=== PATIENT | female | born 1945 | race Caucasian/White ===

== ENCOUNTER 2017-03-23 06:19 | Inpatient (IN) | payer MEDICARE, OTHER ==
[~2017-03-23] VITALS: Ht 152.4 cm; Wt 44.0 kg
[~2017-03-23 06:19] MED LIST: ALBU8HFA PO; AMLO5TAB PO; BENA40TA2 PO; BENA40TA8 PO; FLUT1DIS7 INH; IPRA3AMP IH; MESA500C PO; NOR5T PO
[2017-03-23] MEDS ORDERED: normal saline 1000ml 1,000 ML IV ONE (06:45)
[2017-03-23 07:52] LABS: BASOPHILS % (AUTO) 0 % (0-1); EOSINOPHILS % (AUTO) 0 % (0-6); HEMATOCRIT 35.5 % (35.0-45.0); HEMOGLOBIN 12.3 g/dl (12.0-16.0); LYMPHOCYTES # (AUTO) 0.8 X10'3 (1.1-4.8); LYMPHOCYTES % (AUTO) 6.1 % (21-51); MEAN CORPUSCULAR HEMOGLOBIN 30.1 PG (27.0-31.0); MEAN CORPUSCULAR HGB CONC 34.5 % (33.0-36.5); MEAN CORPUSCULAR VOLUME 87.2 FL (78-98); MEAN PLATELET VOLUME 9.4 FL (7.4-10.4); MONOCYTES # (AUTO) 0.4 X10'3 (0-0.9); MONOCYTES % (AUTO) 3.6 % (2-12); NEUTROPHILS # (AUTO) 11.4 X10'3 (1.8-7.7); NEUTROPHILS % (AUTO) 90.3 % (42-75); PLATELET COUNT 213 X10'3 (140-440); RED BLOOD COUNT 4.08 X10'6 (4.20-5.60); RED CELL DISTRIBUTION WIDTH 13.9 % (11.5-14.5); WHITE BLOOD COUNT 12.6 X10'3 (4.5-11.0)
[2017-03-23 08:04] LABS: INR 1.1 INR; PARTIAL THROMBOPLASTIN TIME 29 SECONDS (22-32); PROTHROMBIN TIME 11.1 SECONDS (9.0-12.0)
[2017-03-23] MEDS ORDERED: Budesonide PO (08:04)
[2017-03-23] MEDS ORDERED: SULF500T9 PO (08:04)
[2017-03-23 08:09] LABS: ALANINE AMINOTRANSFERASE 27 U/L (12-78); ALBUMIN 2.4 G/DL (3.4-5.0); ALBUMIN/GLOBULIN RATIO 0.6 (1.1-1.5); ALKALINE PHOSPHATASE 62 IU/L (46-116); ANION GAP 10 (8-16); ASPARTATE AMINO TRANSFERASE 36 U/L (10-37); BILIRUBIN,TOTAL 0.6 MG/DL (0.1-1.0); BLOOD UREA NITROGEN 11 MG/DL (7-18); BUN/CREATININE RATIO 18.3 (6.6-38.0); CALCIUM 8.4 MG/DL (8.5-10.1); CHLORIDE 97 MMOL/L (99-107); GLUCOSE 109 MG/DL (70-104); LIPASE 62 U/L (73-393); MAGNESIUM 1.9 MG/DL (1.5-2.4); SODIUM 133 MMOL/L (135-145); TOTAL CARBON DIOXIDE 26.4 MMOL/L (24-32); TOTAL PROTEIN 6.7 G/DL (6.4-8.2); eGFR > 90 ML/MIN
[2017-03-23 08:11] LABS: POTASSIUM 3.5 MMOL/L (3.5-5.1)
[2017-03-23] MEDS ORDERED: levoFLOXACIN-Levaquin 500mg/D5 100 ML IV ONE (08:15)
[2017-03-23] MEDS ORDERED: metroNIDAZOLE-Flagyl 500mg/NS 100 ML IV ONE (08:15)
[2017-03-23 09:37] LABS: TOTAL CELLS COUNTED 100
[2017-03-23 09:38] LABS: PLATELET ESTIMATE NORMAL; TOXIC VACUOLATION FEW
[2017-03-23 09:40] LABS: OCCULT BLOOD STOOL POSITIVE (Neg)
[2017-03-23] MEDS ORDERED: acetaminophen 325mg tablet PO PRN (09:40)
[2017-03-23] MEDS ORDERED: mag hydrox/Alum hydrox/simeth 30ml oral suspension PO PRN (09:40)
[2017-03-23] MEDS ORDERED: morphine 2 MG/ML inj. syringe IV PRN ×2 (09:40)
[2017-03-23] MEDS ORDERED: MESSAGE TO PHARMACY PO ONE (09:40)
[2017-03-23] MEDS ORDERED: insulin Lispro (HumaLOG) vial - multi-dose SQ SCH (09:40)
[2017-03-23] MEDS ORDERED: dextrose 50%-water 50ml dispensing syringe IV PRN ×2 (09:40)
[2017-03-23] MEDS ORDERED: magnesium hydroxide 30ml (MOM) UD suspension PO PRN (09:40)
[2017-03-23] MEDS ORDERED: ondansetron/PF 4mg/2ml inj IV PRN (09:40)
[2017-03-23] MEDS ORDERED: HYDROcodone/acetaminophen 5mg/325mg tablet PO PRN (09:40)
[2017-03-23] MEDS ORDERED: dextrose ORAL solution 15 GM/59 ML bottle PO PRN ×2 (09:40)
[2017-03-23] MEDS ORDERED: HYDROcodone/acetaminophen 10/325mg tab PO PRN (09:40)
[2017-03-23] MEDS ORDERED: glucagon, human recombinant 1mg kit SUBCUT PRN (09:40)
[2017-03-23] MEDS: amLODIPine 5mg tablet PO SCH (10:00)
[2017-03-23] MEDS: lisinopril 20mg tablet PO SCH (10:22)
[2017-03-23] MEDS: normal saline 1000ml 1,000 ML IV SCH ×2 (10:23→12:13)
[2017-03-23 10:52] LABS: HEMOGLOBIN A1C 5.7 % (4.5-6.2)
[2017-03-23 11:51] VITALS: BP 94/64
[2017-03-23] MEDS ORDERED: ipratropium/albuterol 3ml nebule IH SCH (13:00)
[2017-03-23] MEDS: sulfaSALAZINE 500 MG tablet PO SCH ×2 (13:13→21:52)
[2017-03-23] MEDS: fluticasone/vilanterol 200mcg/25mcg inhaler IH SCH (13:31)
[2017-03-23] MEDS: ipratropium/albuterol 3ml nebule IH SCH (16:00)
[2017-03-23] MEDS: methylPREDNISolone sod succ 125mg/2ml vial IV SCH (16:14)
[2017-03-23] MEDS: metroNIDAZOLE-Flagyl 500mg/NS 100 ML IV SCH (16:15)
[2017-03-23] MEDS: dextrose 5%-normal saline 1,000 ML IV SCH (17:43)
[2017-03-23 19:30] VITALS: BP 115/60
[2017-03-23] MEDS: insulin glargine (Lantus) pen - multi-dose SQ SCH (22:00)
[2017-03-23 23:30] VITALS: BP 103/65
[2017-03-24] MEDS: ipratropium/albuterol 3ml nebule IH SCH ×5 (00:03→19:21)
[2017-03-24] MEDS: methylPREDNISolone sod succ 125mg/2ml vial IV SCH ×4 (00:36→23:58)
[2017-03-24] MEDS: metroNIDAZOLE-Flagyl 500mg/NS 100 ML IV SCH ×4 (00:36→23:58)
[2017-03-24] MEDS: dextrose 5%-normal saline 1,000 ML IV SCH ×2 (03:51→13:30)
[2017-03-24 05:07] LABS: BASOPHILS % (AUTO) 0 % (0-1); EOSINOPHILS # (AUTO) 0.1 X10'3 (0-0.9); EOSINOPHILS % (AUTO) 1.5 % (0-6); HEMATOCRIT 28.8 % (35.0-45.0); HEMOGLOBIN 9.9 g/dl (12.0-16.0); LYMPHOCYTES # (AUTO) 0.6 X10'3 (1.1-4.8); LYMPHOCYTES % (AUTO) 6.8 % (21-51); MEAN CORPUSCULAR HEMOGLOBIN 29.8 PG (27.0-31.0); MEAN CORPUSCULAR HGB CONC 34.2 % (33.0-36.5); MEAN CORPUSCULAR VOLUME 87.3 FL (78-98); MEAN PLATELET VOLUME 9.2 FL (7.4-10.4); MONOCYTES # (AUTO) 0.1 X10'3 (0-0.9); MONOCYTES % (AUTO) 1.4 % (2-12); NEUTROPHILS # (AUTO) 8.1 X10'3 (1.8-7.7); NEUTROPHILS % (AUTO) 90.3 % (42-75); PLATELET COUNT 170 X10'3 (140-440); RED CELL DISTRIBUTION WIDTH 14.1 % (11.5-14.5); WHITE BLOOD COUNT 8.9 X10'3 (4.5-11.0)
[2017-03-24 05:31] LABS: ANION GAP 8 (8-16); BLOOD UREA NITROGEN 11 MG/DL (7-18); BUN/CREATININE RATIO 27.5 (6.6-38.0); CALCIUM 8.1 MG/DL (8.5-10.1); CHLORIDE 105 MMOL/L (99-107); GLUCOSE 257 MG/DL (70-104); SODIUM 137 MMOL/L (135-145); TOTAL CARBON DIOXIDE 24.4 MMOL/L (24-32); eGFR > 90 ML/MIN
[2017-03-24 05:32] LABS: ALANINE AMINOTRANSFERASE 23 U/L (12-78); ALBUMIN 1.9 G/DL (3.4-5.0); ALBUMIN/GLOBULIN RATIO 0.5 (1.1-1.5); ALKALINE PHOSPHATASE 51 IU/L (46-116); ASPARTATE AMINO TRANSFERASE 34 U/L (10-37); BILIRUBIN,TOTAL 0.3 MG/DL (0.1-1.0); MAGNESIUM 1.7 MG/DL (1.5-2.4); TOTAL PROTEIN 5.5 G/DL (6.4-8.2)
[2017-03-24 05:37] LABS: POTASSIUM 3.1 MMOL/L (3.5-5.1)
[2017-03-24] MEDS: normal saline 1000ml 1,000 ML IV SCH ×2 (05:37→16:35)
[2017-03-24] MEDS: lisinopril 20mg tablet PO SCH (07:35)
[2017-03-24] MEDS: amLODIPine 5mg tablet PO SCH (07:35)
[2017-03-24] MEDS: sulfaSALAZINE 500 MG tablet PO SCH ×3 (07:41→21:01)
[2017-03-24 07:51] VITALS: BP 97/56
[2017-03-24] MEDS ORDERED: fluticasone/vilanterol 200mcg/25mcg inhaler IH SCH (08:00)
[2017-03-24] MEDS: fluticasone/vilanterol 200mcg/25mcg inhaler IH SCH (08:28)
[2017-03-24] MEDS: levoFLOXACIN-Levaquin 500mg/D5 100 ML IV SCH (09:23)
[2017-03-24 11:12] VITALS: BP 96/63
[2017-03-24] MEDS ORDERED: magnesium Cl slow-release 64mg tablet PO PRN (14:40)
[2017-03-24] MEDS ORDERED: magnesium 2GM in 50ml NS 50 ML IV PRN (14:40)
[2017-03-24] MEDS ORDERED: potassium Cl 40MEQ/NS 500ml 500 ML IV PRN ×2 (14:40)
[2017-03-24] MEDS ORDERED: potassium Cl 20 mEq SR tablet PO PRN (14:40)
[2017-03-24] MEDS: potassium Cl 20 mEq SR tablet PO PRN ×2 (14:40→21:11)
[2017-03-24] MEDS ORDERED: magnesium 4gm in 100ml NS 100 ML IV PRN (14:40)
[2017-03-24] MEDS: lactobacillus rhamnosus 10,000 MMU CELLS/CAPSULE PO SCH (17:30)
[2017-03-24 20:00] VITALS: BP 114/60
[2017-03-24] MEDS: insulin glargine (Lantus) pen - multi-dose SQ SCH (21:00)
[2017-03-25] VITALS: BP 143/71
[2017-03-25] MEDS: potassium Cl 20 mEq SR tablet PO PRN (01:15)
[2017-03-25] MEDS: normal saline 1000ml 1,000 ML IV SCH ×3 (01:45→22:32)
[2017-03-25 05:53] LABS: BASOPHILS % (AUTO) 0 % (0-1); EOSINOPHILS # (AUTO) 0.2 X10'3 (0-0.9); EOSINOPHILS % (AUTO) 1.6 % (0-6); HEMATOCRIT 28.8 % (35.0-45.0); HEMOGLOBIN 9.9 g/dl (12.0-16.0); LYMPHOCYTES # (AUTO) 0.8 X10'3 (1.1-4.8); LYMPHOCYTES % (AUTO) 5.3 % (21-51); MEAN CORPUSCULAR HEMOGLOBIN 29.9 PG (27.0-31.0); MEAN CORPUSCULAR HGB CONC 34.4 % (33.0-36.5); MEAN CORPUSCULAR VOLUME 86.8 FL (78-98); MEAN PLATELET VOLUME 9.5 FL (7.4-10.4); MONOCYTES # (AUTO) 0.3 X10'3 (0-0.9); MONOCYTES % (AUTO) 2.2 % (2-12); NEUTROPHILS # (AUTO) 13.9 X10'3 (1.8-7.7); NEUTROPHILS % (AUTO) 90.9 % (42-75); PLATELET COUNT 182 X10'3 (140-440); RED BLOOD COUNT 3.32 X10'6 (4.20-5.60); RED CELL DISTRIBUTION WIDTH 13.9 % (11.5-14.5); WHITE BLOOD COUNT 15.3 X10'3 (4.5-11.0)
[2017-03-25 06:36] LABS: ALANINE AMINOTRANSFERASE 23 U/L (12-78); ALBUMIN/GLOBULIN RATIO 0.6 (1.1-1.5); ALKALINE PHOSPHATASE 68 IU/L (46-116); ANION GAP 7 (8-16); ASPARTATE AMINO TRANSFERASE 18 U/L (10-37); BILIRUBIN,TOTAL 0.3 MG/DL (0.1-1.0); BLOOD UREA NITROGEN 11 MG/DL (7-18); CALCIUM 8.6 MG/DL (8.5-10.1); CHLORIDE 106 MMOL/L (99-107); GLUCOSE 152 MG/DL (70-104); MAGNESIUM 1.7 MG/DL (1.5-2.4); PHOSPHORUS 1.7 MG/DL (2.3-4.5); SODIUM 137 MMOL/L (135-145); TOTAL CARBON DIOXIDE 23.7 MMOL/L (24-32); TOTAL PROTEIN 5.5 G/DL (6.4-8.2); eGFR > 90 ML/MIN
[2017-03-25 06:37] LABS: POTASSIUM 3.6 MMOL/L (3.5-5.1)
[2017-03-25] MEDS: ipratropium/albuterol 3ml nebule IH SCH ×4 (07:10→19:08)
[2017-03-25] MEDS: fluticasone/vilanterol 200mcg/25mcg inhaler IH SCH (07:10)
[2017-03-25] MEDS: amLODIPine 5mg tablet PO SCH (07:48)
[2017-03-25] MEDS: metroNIDAZOLE-Flagyl 500mg/NS 100 ML IV SCH ×3 (07:48→23:23)
[2017-03-25] MEDS: lactobacillus rhamnosus 10,000 MMU CELLS/CAPSULE PO SCH ×2 (07:48→16:58)
[2017-03-25] MEDS: lisinopril 20mg tablet PO SCH (07:49)
[2017-03-25] MEDS: methylPREDNISolone sod succ 125mg/2ml vial IV SCH ×3 (07:49→23:22)
[2017-03-25] MEDS: sulfaSALAZINE 500 MG tablet PO SCH ×3 (07:49→21:04)
[2017-03-25 08:00] VITALS: BP 145/73
[2017-03-25] MEDS: levoFLOXACIN-Levaquin 500mg/D5 100 ML IV SCH (10:01)
[2017-03-25 11:48] VITALS: BP 106/66
[2017-03-25 20:00] VITALS: BP 120/72
[2017-03-25] MEDS: insulin glargine (Lantus) pen - multi-dose SQ SCH (21:00)
[2017-03-26] VITALS: BP 117/70
[2017-03-26 05:07] LABS: BASOPHILS % (AUTO) 0 % (0-1); EOSINOPHILS # (AUTO) 0.2 X10'3 (0-0.9); EOSINOPHILS % (AUTO) 1.7 % (0-6); HEMATOCRIT 27.6 % (35.0-45.0); HEMOGLOBIN 9.5 g/dl (12.0-16.0); LYMPHOCYTES # (AUTO) 0.7 X10'3 (1.1-4.8); LYMPHOCYTES % (AUTO) 8.1 % (21-51); MEAN CORPUSCULAR HGB CONC 34.5 % (33.0-36.5); MEAN CORPUSCULAR VOLUME 86.9 FL (78-98); MEAN PLATELET VOLUME 9.8 FL (7.4-10.4); MONOCYTES # (AUTO) 0.2 X10'3 (0-0.9); MONOCYTES % (AUTO) 2.3 % (2-12); NEUTROPHILS # (AUTO) 8.1 X10'3 (1.8-7.7); NEUTROPHILS % (AUTO) 87.9 % (42-75); PLATELET COUNT 185 X10'3 (140-440); RED BLOOD COUNT 3.18 X10'6 (4.20-5.60); RED CELL DISTRIBUTION WIDTH 14.5 % (11.5-14.5); WHITE BLOOD COUNT 9.2 X10'3 (4.5-11.0)
[2017-03-26 05:57] LABS: ALANINE AMINOTRANSFERASE 26 U/L (12-78); ALBUMIN/GLOBULIN RATIO 0.6 (1.1-1.5); ALKALINE PHOSPHATASE 53 IU/L (46-116); ANION GAP 7 (8-16); ASPARTATE AMINO TRANSFERASE 15 U/L (10-37); BILIRUBIN,TOTAL 0.2 MG/DL (0.1-1.0); BLOOD UREA NITROGEN 8 MG/DL (7-18); CALCIUM 8.1 MG/DL (8.5-10.1); CHLORIDE 108 MMOL/L (99-107); GLUCOSE 151 MG/DL (70-104); MAGNESIUM 1.8 MG/DL (1.5-2.4); PHOSPHORUS 2.4 MG/DL (2.3-4.5); POTASSIUM 3.6 MMOL/L (3.5-5.1); SODIUM 140 MMOL/L (135-145); TOTAL CARBON DIOXIDE 25.3 MMOL/L (24-32); TOTAL PROTEIN 5.3 G/DL (6.4-8.2); eGFR > 90 ML/MIN
[2017-03-26] MEDS: ipratropium/albuterol 3ml nebule IH SCH ×2 (06:51→10:48)
[2017-03-26] MEDS: fluticasone/vilanterol 200mcg/25mcg inhaler IH SCH (06:51)
[2017-03-26 07:00] VITALS: BP_SYST 103; BP_SYST 137; BP_DIAS 70; BP_DIAS 74
[2017-03-26] MEDS: lisinopril 20mg tablet PO SCH (07:25)
[2017-03-26] MEDS: sulfaSALAZINE 500 MG tablet PO SCH ×2 (07:25→13:07)
[2017-03-26] MEDS: lactobacillus rhamnosus 10,000 MMU CELLS/CAPSULE PO SCH (07:25)
[2017-03-26] MEDS: amLODIPine 5mg tablet PO SCH (07:25)
[2017-03-26] MEDS: metroNIDAZOLE-Flagyl 500mg/NS 100 ML IV SCH (07:26)
[2017-03-26] MEDS: methylPREDNISolone sod succ 125mg/2ml vial IV SCH (07:26)
[2017-03-26] MEDS: normal saline 1000ml 1,000 ML IV SCH (07:45)
[2017-03-26] MEDS: levoFLOXACIN-Levaquin 500mg/D5 100 ML IV SCH (08:32)
[2017-03-26] MEDS ORDERED: LEVO500T2 PO (14:09)
[2017-03-26] MEDS ORDERED: METR500T4 PO (14:09)
[2017-03-26] MEDS ORDERED: PRED20TA PO (14:12)
== END 2017-03-26 14:45 | disposition home or self-care (01) | DRG 377 ==
LOC: ER 06:19 → ED HOLD 09:37 → SUR 3N 11:24
PROVIDERS: ADMIT Internal Medicine; ATTEND Family Medicine
DX: K92.2 Gastrointestinal hemorrhage, unspecified (principal); G93.40 Encephalopathy, unspecified; E46 Unspecified protein-calorie malnutrition; K51.90 Ulcerative colitis, unspecified, without complications; E86.0 Dehydration; E11.9 Type 2 diabetes mellitus without complications; D50.0 Iron deficiency anemia secondary to blood loss (chronic); Z68.1 Body mass index [BMI] 19.9 or less, adult; R54 Age-related physical debility; J44.9 Chronic obstructive pulmonary disease, unspecified; I10 Essential (primary) hypertension; E87.6 Hypokalemia; Z66 Do not resuscitate; Z79.899 Other long term (current) drug therapy; Z87.891 Personal history of nicotine dependence
CPT/HCPCS: 36415; 71045; 80053; 82272; 82948; 83036; 83605; 83690; 83735; 84100; 85025; 85610; 85730; 86885; 86900; 86901; 87040; 87070; 87324; 87449; 93005; 94640; 94760; 96361; 96365; 97110; 97116; 97161; 97530; 99285; J1815; J1956; J2405; J2930; J3490; J7030; J7042

== ENCOUNTER 2017-04-06 15:10 | Inpatient (IN) | payer MEDICARE, OTHER ==
[~2017-04-06] VITALS: Ht 165.1 cm; Wt 43.3 kg
[~2017-04-06 15:10] MED LIST changes: -AMLO5TAB PO; -BENA40TA8 PO; +Budesonide PO; +LEVO500T2 PO; -MESA500C PO; +METR500T4 PO; +PRED20TA PO; +SULF500T9 PO
[2017-04-06] MEDS ORDERED: acetaminophen 325mg tablet PO STA (15:15)
[2017-04-06 15:49] LABS: BASOPHILS % (AUTO) 0.4 % (0-1); EOSINOPHILS # (AUTO) 0.1 X10'3 (0-0.9); EOSINOPHILS % (AUTO) 1.7 % (0-6); HEMOGLOBIN 11.1 g/dl (12.0-16.0); LYMPHOCYTES # (AUTO) 1.2 X10'3 (1.1-4.8); MEAN CORPUSCULAR HEMOGLOBIN 29.7 PG (27.0-31.0); MEAN CORPUSCULAR HGB CONC 33.7 % (33.0-36.5); MEAN CORPUSCULAR VOLUME 88.3 FL (78-98); MEAN PLATELET VOLUME 7.9 FL (7.4-10.4); MONOCYTES # (AUTO) 0.6 X10'3 (0-0.9); MONOCYTES % (AUTO) 6.9 % (2-12); NEUTROPHILS # (AUTO) 6.6 X10'3 (1.8-7.7); PLATELET COUNT 255 X10'3 (140-440); RED BLOOD COUNT 3.74 X10'6 (4.20-5.60); RED CELL DISTRIBUTION WIDTH 14.6 % (11.5-14.5); WHITE BLOOD COUNT 8.6 X10'3 (4.5-11.0)
[2017-04-06 15:55] LABS: CLARITY,URINE CLEAR (Clear); COLOR,URINE YELLOW (Yellow); GLUCOSE, URINE 250 mg/dl (Neg); KETONES,URINE NEGATIVE (Neg); LEUKOCYTE ESTERASE ,URINE NEGATIVE (Neg); NITRITES, URINE NEGATIVE (Neg); OCCULT BLOOD,URINE NEGATIVE (Neg); PH,URINE 8.5 (4.8-8.0); PROTEIN,URINE TRACE mg/dl (Neg); UROBILINOGEN,URINE 0.2 E.U/dL (0.2-1.0)
[2017-04-06 15:56] LABS: UA COLLECTION TYPE NON-SPECIFIED
[2017-04-06 15:58] LABS: PARTIAL THROMBOPLASTIN TIME 27 SECONDS (22-32); PROTHROMBIN TIME 10.5 SECONDS (9.0-12.0)
[2017-04-06 16:02] LABS: ALANINE AMINOTRANSFERASE 30 U/L (12-78); ALBUMIN 2.4 G/DL (3.4-5.0); ALBUMIN/GLOBULIN RATIO 0.6 (1.1-1.5); ALKALINE PHOSPHATASE 56 IU/L (46-116); ANION GAP 5 (8-16); ASPARTATE AMINO TRANSFERASE 37 U/L (10-37); BILIRUBIN,TOTAL 0.4 MG/DL (0.1-1.0); BLOOD UREA NITROGEN 11 MG/DL (7-18); BUN/CREATININE RATIO 19.3 (6.6-38.0); CALCIUM 8.5 MG/DL (8.5-10.1); CHLORIDE 99 MMOL/L (99-107); CREATININE 0.57 MG/DL (0.40-0.90); GLUCOSE 103 MG/DL (70-104); MAGNESIUM 1.9 MG/DL (1.5-2.4); POTASSIUM 4.4 MMOL/L (3.5-5.1); SODIUM 135 MMOL/L (135-145); TOTAL CARBON DIOXIDE 31.5 MMOL/L (24-32); TOTAL PROTEIN 6.2 G/DL (6.4-8.2); eGFR > 90 ML/MIN
[2017-04-06 16:11] LABS: BACTERIA,URINE NONE SEEN /HPF (Neg); RBC,URINE 0-2 /HPF (0-2); SQUAMOUS EPITHELIAL CELL,UR FEW /LPF (FEW); WBC,URINE 0-4 /HPF (0-4)
[2017-04-06] MEDS ORDERED: normal saline 1000ML IV soln IVB ONE (16:40)
[2017-04-06] MEDS ORDERED: metroNIDAZOLE-Flagyl 500mg/NS 100 ML IV STA (18:16)
[2017-04-06] MEDS ORDERED: acetaminophen 325mg tablet PO PRN (18:20)
[2017-04-06] MEDS ORDERED: ondansetron/PF 4mg/2ml inj IV PRN (18:20)
[2017-04-06] MEDS ORDERED: morphine 2 MG/ML inj. syringe IV PRN (18:20)
[2017-04-06] MEDS ORDERED: mag hydrox/Alum hydrox/simeth 30ml oral suspension PO PRN (18:20)
[2017-04-06] MEDS ORDERED: levoFLOXACIN-Levaquin 750MG/D5 150 ML IV ONE (18:20)
[2017-04-06] MEDS ORDERED: magnesium hydroxide 30ml (MOM) UD suspension PO PRN (18:20)
[2017-04-06] MEDS ORDERED: non-formulary drug (albuterol inhaler (Pro-Air Inhaler) 2 PUFFS) PO PRN (18:30)
[2017-04-06] MEDS ORDERED: albuterol 2.5 MG/3 ML nebule NEB PRN (18:35)
[2017-04-06] MEDS: normal saline 1000ml 1,000 ML IV SCH (18:55)
[2017-04-06] MEDS ORDERED: non-formulary drug (Fluticasone/Salmeterol (Advair 500-50 Diskus) 1 PUFFS) INH SCH (20:00)
[2017-04-06] MEDS ORDERED: BUDESONIDE 3 MG PO SCH (21:00)
[2017-04-06 22:00] VITALS: BP 113/60
[2017-04-06] MEDS: budesonide 3mg SR capsule PO SCH (22:25)
[2017-04-06] MEDS: sulfaSALAZINE 500 MG tablet PO SCH (22:25)
[2017-04-06] MEDS: ipratropium/albuterol 3ml nebule IH SCH (23:04)
[2017-04-07] MEDS: metroNIDAZOLE-Flagyl 500mg/NS 100 ML IV SCH ×3 (00:07→16:52)
[2017-04-07 03:00] VITALS: BP 110/69
[2017-04-07] MEDS: normal saline 1000ml 1,000 ML IV SCH ×2 (04:20→14:20)
[2017-04-07 05:09] LABS: BASOPHILS % (AUTO) 0.3 % (0-1); EOSINOPHILS # (AUTO) 0.1 X10'3 (0-0.9); EOSINOPHILS % (AUTO) 1.7 % (0-6); HEMATOCRIT 26.5 % (35.0-45.0); LYMPHOCYTES % (AUTO) 17.2 % (21-51); MEAN CORPUSCULAR HEMOGLOBIN 30.2 PG (27.0-31.0); MEAN CORPUSCULAR VOLUME 88.7 FL (78-98); MEAN PLATELET VOLUME 8.1 FL (7.4-10.4); MONOCYTES # (AUTO) 0.5 X10'3 (0-0.9); MONOCYTES % (AUTO) 9.1 % (2-12); NEUTROPHILS # (AUTO) 4.1 X10'3 (1.8-7.7); NEUTROPHILS % (AUTO) 71.7 % (42-75); PLATELET COUNT 175 X10'3 (140-440); RED BLOOD COUNT 2.99 X10'6 (4.20-5.60); RED CELL DISTRIBUTION WIDTH 14.6 % (11.5-14.5); WHITE BLOOD COUNT 5.8 X10'3 (4.5-11.0)
[2017-04-07 05:28] LABS: ALBUMIN 1.9 G/DL (3.4-5.0); ANION GAP 6 (8-16); BLOOD UREA NITROGEN 9 MG/DL (7-18); BUN/CREATININE RATIO 18.8 (6.6-38.0); CALCIUM 7.5 MG/DL (8.5-10.1); CHLORIDE 105 MMOL/L (99-107); CREATININE 0.48 MG/DL (0.40-0.90); GLUCOSE 97 MG/DL (70-104); POTASSIUM 4.1 MMOL/L (3.5-5.1); SODIUM 138 MMOL/L (135-145); TOTAL CARBON DIOXIDE 27.5 MMOL/L (24-32); eGFR > 90 ML/MIN
[2017-04-07 07:09] VITALS: BP 110/67
[2017-04-07] MEDS: ipratropium/albuterol 3ml nebule IH SCH ×4 (07:39→19:36)
[2017-04-07] MEDS: fluticasone/vilanterol 200mcg/25mcg inhaler IH SCH (07:39)
[2017-04-07] MEDS: levoFLOXACIN-Levaquin 500mg/D5 100 ML IV SCH (07:53)
[2017-04-07] MEDS: sulfaSALAZINE 500 MG tablet PO SCH ×3 (07:53→20:19)
[2017-04-07] MEDS: budesonide 3mg SR capsule PO SCH ×3 (07:57→20:19)
[2017-04-07 11:00] VITALS: BP 112/65
[2017-04-07 15:47] VITALS: BP 130/73
[2017-04-07] MEDS: lactobacillus rhamnosus 10,000 MMU CELLS/CAPSULE PO SCH (16:52)
[2017-04-07 19:00] VITALS: BP 134/76
[2017-04-07 23:00] VITALS: BP 133/76
[2017-04-08] MEDS: metroNIDAZOLE-Flagyl 500mg/NS 100 ML IV SCH ×3 (00:12→16:56)
[2017-04-08] MEDS: normal saline 1000ml 1,000 ML IV SCH ×3 (00:20→19:59)
[2017-04-08 03:00] VITALS: BP 129/71
[2017-04-08 05:51] LABS: BASOPHILS % (AUTO) 0.3 % (0-1); EOSINOPHILS # (AUTO) 0.1 X10'3 (0-0.9); EOSINOPHILS % (AUTO) 1.2 % (0-6); HEMATOCRIT 25.2 % (35.0-45.0); HEMOGLOBIN 8.7 g/dl (12.0-16.0); LYMPHOCYTES % (AUTO) 20.5 % (21-51); MEAN CORPUSCULAR HEMOGLOBIN 30.3 PG (27.0-31.0); MEAN CORPUSCULAR HGB CONC 34.5 % (33.0-36.5); MEAN CORPUSCULAR VOLUME 87.8 FL (78-98); MONOCYTES # (AUTO) 0.5 X10'3 (0-0.9); NEUTROPHILS # (AUTO) 3.4 X10'3 (1.8-7.7); PLATELET COUNT 167 X10'3 (140-440); RED BLOOD COUNT 2.87 X10'6 (4.20-5.60); RED CELL DISTRIBUTION WIDTH 14.5 % (11.5-14.5); WHITE BLOOD COUNT 4.9 X10'3 (4.5-11.0)
[2017-04-08 06:19] LABS: ALBUMIN 1.9 G/DL (3.4-5.0); ANION GAP 8 (8-16); BLOOD UREA NITROGEN 4 MG/DL (7-18); CALCIUM 7.7 MG/DL (8.5-10.1); CHLORIDE 102 MMOL/L (99-107); GLUCOSE 82 MG/DL (70-104); POTASSIUM 3.7 MMOL/L (3.5-5.1); SODIUM 137 MMOL/L (135-145); TOTAL CARBON DIOXIDE 26.7 MMOL/L (24-32); eGFR > 90 ML/MIN
[2017-04-08 07:07] VITALS: BP 133/68
[2017-04-08] MEDS: ipratropium/albuterol 3ml nebule IH SCH ×4 (07:15→19:00)
[2017-04-08] MEDS: fluticasone/vilanterol 200mcg/25mcg inhaler IH SCH (07:18)
[2017-04-08] MEDS: lactobacillus rhamnosus 10,000 MMU CELLS/CAPSULE PO SCH ×2 (08:13→16:56)
[2017-04-08] MEDS: sulfaSALAZINE 500 MG tablet PO SCH ×3 (08:13→20:02)
[2017-04-08] MEDS: levoFLOXACIN-Levaquin 500mg/D5 100 ML IV SCH (08:14)
[2017-04-08] MEDS: budesonide 3mg SR capsule PO SCH ×3 (08:17→20:03)
[2017-04-08 11:00] VITALS: BP 125/70
[2017-04-08 15:00] VITALS: BP 131/68
[2017-04-08 19:00] VITALS: BP 119/66
[2017-04-08 23:00] VITALS: BP 116/62
[2017-04-09] MEDS: metroNIDAZOLE-Flagyl 500mg/NS 100 ML IV SCH ×4 (00:18→23:15)
[2017-04-09 03:00] VITALS: BP 112/55
[2017-04-09 06:00] VITALS: BP 125/62
[2017-04-09 06:03] LABS: BASOPHILS % (AUTO) 0.5 % (0-1); EOSINOPHILS # (AUTO) 0.1 X10'3 (0-0.9); EOSINOPHILS % (AUTO) 1.5 % (0-6); HEMATOCRIT 25.8 % (35.0-45.0); HEMOGLOBIN 8.8 g/dl (12.0-16.0); LYMPHOCYTES # (AUTO) 0.9 X10'3 (1.1-4.8); LYMPHOCYTES % (AUTO) 24.5 % (21-51); MEAN CORPUSCULAR HEMOGLOBIN 30.2 PG (27.0-31.0); MEAN CORPUSCULAR HGB CONC 34.1 % (33.0-36.5); MEAN CORPUSCULAR VOLUME 88.7 FL (78-98); MEAN PLATELET VOLUME 8.1 FL (7.4-10.4); MONOCYTES # (AUTO) 0.3 X10'3 (0-0.9); NEUTROPHILS # (AUTO) 2.5 X10'3 (1.8-7.7); NEUTROPHILS % (AUTO) 65.5 % (42-75); PLATELET COUNT 151 X10'3 (140-440); RED CELL DISTRIBUTION WIDTH 14.7 % (11.5-14.5); WHITE BLOOD COUNT 3.8 X10'3 (4.5-11.0)
[2017-04-09 06:32] LABS: ALBUMIN 1.8 G/DL (3.4-5.0); ANION GAP 7 (8-16); BLOOD UREA NITROGEN 2 MG/DL (7-18); BUN/CREATININE RATIO 5.6 (6.6-38.0); CALCIUM 7.7 MG/DL (8.5-10.1); CHLORIDE 103 MMOL/L (99-107); CREATININE 0.36 MG/DL (0.40-0.90); GLUCOSE 91 MG/DL (70-104); POTASSIUM 3.2 MMOL/L (3.5-5.1); SODIUM 139 MMOL/L (135-145); TOTAL CARBON DIOXIDE 29.4 MMOL/L (24-32); eGFR > 90 ML/MIN
[2017-04-09] MEDS: fluticasone/vilanterol 200mcg/25mcg inhaler IH SCH (07:07)
[2017-04-09] MEDS: ipratropium/albuterol 3ml nebule IH SCH ×4 (07:07→20:50)
[2017-04-09] MEDS: levoFLOXACIN-Levaquin 500mg/D5 100 ML IV SCH (08:28)
[2017-04-09] MEDS: sulfaSALAZINE 500 MG tablet PO SCH ×3 (08:29→20:11)
[2017-04-09] MEDS: budesonide 3mg SR capsule PO SCH ×3 (08:29→20:11)
[2017-04-09] MEDS: lactobacillus rhamnosus 10,000 MMU CELLS/CAPSULE PO SCH ×2 (08:29→17:15)
[2017-04-09] MEDS: normal saline 1000ml 1,000 ML IV SCH ×2 (08:30→17:15)
[2017-04-09] MEDS ORDERED: potassium Cl 20 mEq SR tablet PO PRN (10:05)
[2017-04-09] MEDS ORDERED: potassium Cl 40MEQ/NS 500ml 500 ML IV PRN ×2 (10:05)
[2017-04-09] MEDS: potassium Cl 20 mEq SR tablet PO PRN ×3 (10:10→23:15)
[2017-04-09 11:00] VITALS: BP 134/75
[2017-04-09 15:00] VITALS: BP 138/77
[2017-04-09 19:00] VITALS: BP 132/69
[2017-04-09 23:00] VITALS: BP 115/56
[2017-04-10] VITALS (7 sets, daily range): BP systolic 106–154; BP diastolic 61–76
[2017-04-10] MEDS: normal saline 1000ml 1,000 ML IV SCH ×3 (02:20→17:17)
[2017-04-10 06:00] LABS: BASOPHILS % (AUTO) 0.4 % (0-1); EOSINOPHILS # (AUTO) 0.1 X10'3 (0-0.9); EOSINOPHILS % (AUTO) 2.3 % (0-6); HEMATOCRIT 28.6 % (35.0-45.0); HEMOGLOBIN 9.8 g/dl (12.0-16.0); LYMPHOCYTES # (AUTO) 1.2 X10'3 (1.1-4.8); LYMPHOCYTES % (AUTO) 31.2 % (21-51); MEAN CORPUSCULAR HEMOGLOBIN 30.2 PG (27.0-31.0); MEAN CORPUSCULAR HGB CONC 34.1 % (33.0-36.5); MEAN CORPUSCULAR VOLUME 88.4 FL (78-98); MEAN PLATELET VOLUME 8.3 FL (7.4-10.4); MONOCYTES # (AUTO) 0.3 X10'3 (0-0.9); MONOCYTES % (AUTO) 8.8 % (2-12); NEUTROPHILS # (AUTO) 2.3 X10'3 (1.8-7.7); NEUTROPHILS % (AUTO) 57.3 % (42-75); PLATELET COUNT 203 X10'3 (140-440); RED BLOOD COUNT 3.24 X10'6 (4.20-5.60); RED CELL DISTRIBUTION WIDTH 14.4 % (11.5-14.5)
[2017-04-10 06:26] LABS: ANION GAP 8 (8-16); BLOOD UREA NITROGEN 2 MG/DL (7-18); BUN/CREATININE RATIO 4.3 (6.6-38.0); CALCIUM 8.1 MG/DL (8.5-10.1); CHLORIDE 104 MMOL/L (99-107); CREATININE 0.47 MG/DL (0.40-0.90); GLUCOSE 98 MG/DL (70-104); POTASSIUM 3.5 MMOL/L (3.5-5.1); SODIUM 140 MMOL/L (135-145); TOTAL CARBON DIOXIDE 28.5 MMOL/L (24-32); eGFR > 90 ML/MIN
[2017-04-10] MEDS: ipratropium/albuterol 3ml nebule IH SCH ×4 (06:56→21:18)
[2017-04-10] MEDS: fluticasone/vilanterol 200mcg/25mcg inhaler IH SCH (07:00)
[2017-04-10] MEDS: budesonide 3mg SR capsule PO SCH ×3 (07:53→21:39)
[2017-04-10] MEDS: sulfaSALAZINE 500 MG tablet PO SCH ×3 (07:53→21:39)
[2017-04-10] MEDS: lactobacillus rhamnosus 10,000 MMU CELLS/CAPSULE PO SCH ×2 (07:53→17:17)
[2017-04-10] MEDS: metroNIDAZOLE-Flagyl 500mg/NS 100 ML IV SCH ×2 (07:54→16:05)
[2017-04-10] MEDS: K and/or MAG REPLACEMENT MC SCH (08:00)
[2017-04-10] MEDS: levoFLOXACIN-Levaquin 500mg/D5 100 ML IV SCH (09:13)
[2017-04-11] MEDS: metroNIDAZOLE-Flagyl 500mg/NS 100 ML IV SCH ×2 (00:46→08:38)
[2017-04-11] MEDS: normal saline 1000ml 1,000 ML IV SCH (04:28)
[2017-04-11 05:00] VITALS: BP 135/78
[2017-04-11 06:08] LABS: BASOPHILS % (AUTO) 0.7 % (0-1); EOSINOPHILS # (AUTO) 0.1 X10'3 (0-0.9); EOSINOPHILS % (AUTO) 2.1 % (0-6); HEMATOCRIT 27.9 % (35.0-45.0); HEMOGLOBIN 9.5 g/dl (12.0-16.0); LYMPHOCYTES # (AUTO) 1.1 X10'3 (1.1-4.8); LYMPHOCYTES % (AUTO) 25.4 % (21-51); MEAN CORPUSCULAR HEMOGLOBIN 30.2 PG (27.0-31.0); MEAN CORPUSCULAR HGB CONC 34.2 % (33.0-36.5); MEAN CORPUSCULAR VOLUME 88.3 FL (78-98); MONOCYTES # (AUTO) 0.5 X10'3 (0-0.9); MONOCYTES % (AUTO) 10.6 % (2-12); NEUTROPHILS # (AUTO) 2.8 X10'3 (1.8-7.7); NEUTROPHILS % (AUTO) 61.2 % (42-75); PLATELET COUNT 203 X10'3 (140-440); RED BLOOD COUNT 3.16 X10'6 (4.20-5.60); RED CELL DISTRIBUTION WIDTH 14.9 % (11.5-14.5); WHITE BLOOD COUNT 4.5 X10'3 (4.5-11.0)
[2017-04-11 06:20] LABS: ANION GAP 8 (8-16); BLOOD UREA NITROGEN 2 MG/DL (7-18); BUN/CREATININE RATIO 4.9 (6.6-38.0); CALCIUM 7.8 MG/DL (8.5-10.1); CHLORIDE 102 MMOL/L (99-107); CREATININE 0.41 MG/DL (0.40-0.90); GLUCOSE 96 MG/DL (70-104); SODIUM 138 MMOL/L (135-145); eGFR > 90 ML/MIN
[2017-04-11] MEDS ORDERED: potassium Cl 20 mEq SR tablet PO STA (06:36)
[2017-04-11] MEDS: K and/or MAG REPLACEMENT MC SCH (06:51)
[2017-04-11] MEDS: lactobacillus rhamnosus 10,000 MMU CELLS/CAPSULE PO SCH (06:59)
[2017-04-11] MEDS: sulfaSALAZINE 500 MG tablet PO SCH (07:00)
[2017-04-11] MEDS: budesonide 3mg SR capsule PO SCH (07:00)
[2017-04-11] MEDS: levoFLOXACIN-Levaquin 500mg/D5 100 ML IV SCH (07:01)
[2017-04-11 07:53] LABS: MAGNESIUM 1.3 MG/DL (1.5-2.4)
[2017-04-11] MEDS: ipratropium/albuterol 3ml nebule IH SCH ×2 (08:45→11:50)
[2017-04-11] MEDS: fluticasone/vilanterol 200mcg/25mcg inhaler IH SCH (08:46)
[2017-04-11 10:00] VITALS: BP 178/82
== END 2017-04-11 12:45 | disposition home health service (06) | DRG 872 ==
LOC: ER 15:10 → ED HOLD 18:20 → PCU 3S 21:35 → ORTHO 4S 04-10 15:54
PROVIDERS: ADMIT Family Medicine; ATTEND Family Medicine
DX: A41.9 Sepsis, unspecified organism (principal); J96.10 Chronic respiratory failure, unspecified whether with hypoxia or hypercapnia; E44.0 Moderate protein-calorie malnutrition; K51.90 Ulcerative colitis, unspecified, without complications; Z68.1 Body mass index [BMI] 19.9 or less, adult; Z99.81 Dependence on supplemental oxygen; R65.20 Severe sepsis without septic shock; J44.9 Chronic obstructive pulmonary disease, unspecified; E87.6 Hypokalemia; I10 Essential (primary) hypertension; Z66 Do not resuscitate; I25.10 Atherosclerotic heart disease of native coronary artery without angina pectoris; Z79.899 Other long term (current) drug therapy; Z87.891 Personal history of nicotine dependence; Z87.01 Personal history of pneumonia (recurrent)
CPT/HCPCS: 36415; 71045; 74176; 80048; 80053; 81001; 83605; 83735; 84145; 85025; 85610; 85730; 86885; 86900; 86901; 87040; 87070; 94640; 94760; 96360; 97110; 97116; 97162; 97530; 97535; 99291; A6213; A6250; J1956; J3490; J7030

== ENCOUNTER 2017-04-16 19:19 | Inpatient (IN) | payer MEDICARE, OTHER ==
[~2017-04-16] VITALS: Ht 152.4 cm; Wt 42.5 kg
[~2017-04-16 19:19] MED LIST changes: -LEVO500T2 PO; -METR500T4 PO; -PRED20TA PO
[2017-04-16 19:54] LABS: BASOPHILS % (AUTO) 0.2 % (0-1); EOSINOPHILS # (AUTO) 0.3 X10'3 (0-0.9); EOSINOPHILS % (AUTO) 2.5 % (0-6); HEMATOCRIT 29.3 % (35.0-45.0); HEMOGLOBIN 9.7 g/dl (12.0-16.0); LYMPHOCYTES # (AUTO) 1.9 X10'3 (1.1-4.8); LYMPHOCYTES % (AUTO) 16.8 % (21-51); MEAN CORPUSCULAR HEMOGLOBIN 29.5 PG (27.0-31.0); MEAN CORPUSCULAR HGB CONC 33.2 % (33.0-36.5); MEAN CORPUSCULAR VOLUME 88.7 FL (78-98); MEAN PLATELET VOLUME 7.4 FL (7.4-10.4); MONOCYTES # (AUTO) 0.9 X10'3 (0-0.9); MONOCYTES % (AUTO) 8.2 % (2-12); NEUTROPHILS # (AUTO) 8.2 X10'3 (1.8-7.7); NEUTROPHILS % (AUTO) 72.3 % (42-75); PLATELET COUNT 420 X10'3 (140-440); RED CELL DISTRIBUTION WIDTH 15.4 % (11.5-14.5); WHITE BLOOD COUNT 11.4 X10'3 (4.5-11.0)
[2017-04-16 20:06] LABS: INR 1.1 INR; PARTIAL THROMBOPLASTIN TIME 28 SECONDS (22-32); PROTHROMBIN TIME 11.1 SECONDS (9.0-12.0)
[2017-04-16 20:09] LABS: ALANINE AMINOTRANSFERASE 30 U/L (12-78); ALBUMIN/GLOBULIN RATIO 0.5 (1.1-1.5); ALKALINE PHOSPHATASE 59 IU/L (46-116); ANION GAP 8 (8-16); ASPARTATE AMINO TRANSFERASE 57 U/L (10-37); BILIRUBIN,TOTAL 0.3 MG/DL (0.1-1.0); BLOOD UREA NITROGEN 11 MG/DL (7-18); BUN/CREATININE RATIO 20.4 (6.6-38.0); CALCIUM 8.5 MG/DL (8.5-10.1); CHLORIDE 98 MMOL/L (99-107); CREATININE 0.54 MG/DL (0.40-0.90); GLUCOSE 153 MG/DL (70-104); POTASSIUM 3.5 MMOL/L (3.5-5.1); SODIUM 136 MMOL/L (135-145); TOTAL CARBON DIOXIDE 30.4 MMOL/L (24-32); TOTAL PROTEIN 5.9 G/DL (6.4-8.2); eGFR > 90 ML/MIN
[2017-04-16] MEDS ORDERED: temazepam 15mg capsule PO PRN (21:00)
[2017-04-16] MEDS ORDERED: potassium Cl 40MEQ/NS 500ml 500 ML IV PRN ×2 (21:05)
[2017-04-16] MEDS ORDERED: mag hydrox/Alum hydrox/simeth 30ml oral suspension PO PRN (21:05)
[2017-04-16] MEDS ORDERED: potassium Cl 20 mEq SR tablet PO PRN ×2 (21:05)
[2017-04-16] MEDS ORDERED: magnesium 4gm in 100ml NS 100 ML IV PRN (21:05)
[2017-04-16] MEDS ORDERED: acetaminophen 325mg tablet PO PRN (21:05)
[2017-04-16] MEDS ORDERED: albuterol 2.5 MG/3 ML nebule NEB PRN (21:05)
[2017-04-16] MEDS ORDERED: HYDROmorphone 1 mg/ml syringe IV PRN ×2 (21:05)
[2017-04-16] MEDS ORDERED: ipratropium/albuterol 3ml nebule NEB PRN (21:05)
[2017-04-16] MEDS ORDERED: magnesium hydroxide 30ml (MOM) UD suspension PO PRN (21:05)
[2017-04-16] MEDS ORDERED: magnesium 2GM in 50ml NS 50 ML IV PRN (21:05)
[2017-04-16 21:15] LABS: TOTAL CELLS COUNTED 100
[2017-04-16 21:16] LABS: PLATELET ESTIMATE NORMAL
[2017-04-16] MEDS ORDERED: normal saline 1000ML IV soln IVB ONE (21:20)
[2017-04-16] MEDS: normal saline 1000ml 1,000 ML IV SCH (21:26)
[2017-04-16 23:54] VITALS: BP 136/72
[2017-04-17] MEDS ORDERED: hydrocortisone sod succ/PF 100mg/2ml inj. IV SCH
[2017-04-17] MEDS: hydrocortisone sod succ/PF 100mg/2ml inj. IV SCH ×4 (00:01→23:51)
[2017-04-17] MEDS: pantoprazole 40 MG vial IV SCH (07:22)
[2017-04-17] MEDS: normal saline 1000ml 1,000 ML IV SCH ×2 (07:22→20:03)
[2017-04-17] MEDS: sulfaSALAZINE 500 MG tablet PO SCH ×3 (07:22→20:03)
[2017-04-17] MEDS: ipratropium/albuterol 3ml nebule IH SCH ×4 (07:29→19:57)
[2017-04-17 07:36] LABS: BASOPHILS % (AUTO) 0 % (0-1); EOSINOPHILS # (AUTO) 0.1 X10'3 (0-0.9); HEMATOCRIT 27.9 % (35.0-45.0); HEMOGLOBIN 9.1 g/dl (12.0-16.0); LYMPHOCYTES # (AUTO) 0.8 X10'3 (1.1-4.8); LYMPHOCYTES % (AUTO) 7.7 % (21-51); MEAN CORPUSCULAR HEMOGLOBIN 29.4 PG (27.0-31.0); MEAN CORPUSCULAR HGB CONC 32.8 % (33.0-36.5); MEAN CORPUSCULAR VOLUME 89.8 FL (78-98); MEAN PLATELET VOLUME 7.9 FL (7.4-10.4); MONOCYTES # (AUTO) 0.1 X10'3 (0-0.9); NEUTROPHILS # (AUTO) 9.2 X10'3 (1.8-7.7); NEUTROPHILS % (AUTO) 90.3 % (42-75); PLATELET COUNT 328 X10'3 (140-440); RED BLOOD COUNT 3.11 X10'6 (4.20-5.60); RED CELL DISTRIBUTION WIDTH 15.7 % (11.5-14.5); WHITE BLOOD COUNT 10.2 X10'3 (4.5-11.0)
[2017-04-17 07:56] LABS: ALANINE AMINOTRANSFERASE 26 U/L (12-78); ALBUMIN 1.7 G/DL (3.4-5.0); ALBUMIN/GLOBULIN RATIO 0.5 (1.1-1.5); ALKALINE PHOSPHATASE 50 IU/L (46-116); ANION GAP 9 (8-16); ASPARTATE AMINO TRANSFERASE 29 U/L (10-37); BILIRUBIN,TOTAL 0.3 MG/DL (0.1-1.0); BLOOD UREA NITROGEN 5 MG/DL (7-18); BUN/CREATININE RATIO 12.2 (6.6-38.0); CALCIUM 7.3 MG/DL (8.5-10.1); CHLORIDE 105 MMOL/L (99-107); CREATININE 0.41 MG/DL (0.40-0.90); GLUCOSE 137 MG/DL (70-104); MAGNESIUM 1.4 MG/DL (1.5-2.4); POTASSIUM 3.2 MMOL/L (3.5-5.1); SODIUM 140 MMOL/L (135-145); TOTAL CARBON DIOXIDE 26.3 MMOL/L (24-32); TOTAL PROTEIN 5.3 G/DL (6.4-8.2); eGFR > 90 ML/MIN
[2017-04-17] MEDS: K and/or MAG REPLACEMENT MC SCH (08:00)
[2017-04-17] MEDS: magnesium Cl slow-release 64mg tablet PO PRN ×2 (08:53→12:33)
[2017-04-17] MEDS ORDERED: potassium Cl oral solution 20 MEQ/15 ML PO PRN (08:55)
[2017-04-17] MEDS: potassium Cl oral solution 20 MEQ/15 ML PO PRN ×3 (09:31→17:11)
[2017-04-17 10:00] VITALS: BP 161/71
[2017-04-17] MEDS: ondansetron/PF 4mg/2ml inj IV PRN (10:29)
[2017-04-17] MEDS: fluticasone/vilanterol 200mcg/25mcg inhaler IH SCH (10:54)
[2017-04-17 11:40] LABS: BASOPHILS % (AUTO) 0 % (0-1); EOSINOPHILS # (AUTO) 0.1 X10'3 (0-0.9); EOSINOPHILS % (AUTO) 1.1 % (0-6); HEMATOCRIT 28.8 % (35.0-45.0); HEMOGLOBIN 9.5 g/dl (12.0-16.0); LYMPHOCYTES # (AUTO) 0.6 X10'3 (1.1-4.8); LYMPHOCYTES % (AUTO) 6.2 % (21-51); MEAN CORPUSCULAR HEMOGLOBIN 29.4 PG (27.0-31.0); MEAN CORPUSCULAR HGB CONC 33.1 % (33.0-36.5); MEAN CORPUSCULAR VOLUME 88.8 FL (78-98); MEAN PLATELET VOLUME 7.8 FL (7.4-10.4); MONOCYTES # (AUTO) 0.1 X10'3 (0-0.9); NEUTROPHILS # (AUTO) 9.2 X10'3 (1.8-7.7); NEUTROPHILS % (AUTO) 91.7 % (42-75); PLATELET COUNT 354 X10'3 (140-440); RED BLOOD COUNT 3.24 X10'6 (4.20-5.60); RED CELL DISTRIBUTION WIDTH 15.3 % (11.5-14.5); WHITE BLOOD COUNT 10.1 X10'3 (4.5-11.0)
[2017-04-17 14:13] VITALS: BP 121/67
[2017-04-17] MEDS: lisinopril 10 MG tablet PO SCH (14:14)
[2017-04-17 18:00] VITALS: BP 130/62
[2017-04-17 20:00] LABS: BASOPHILS % (AUTO) 0.1 % (0-1); EOSINOPHILS # (AUTO) 0.2 X10'3 (0-0.9); EOSINOPHILS % (AUTO) 1.6 % (0-6); HEMATOCRIT 27.1 % (35.0-45.0); HEMOGLOBIN 9.1 g/dl (12.0-16.0); LYMPHOCYTES # (AUTO) 0.9 X10'3 (1.1-4.8); LYMPHOCYTES % (AUTO) 6.6 % (21-51); MEAN CORPUSCULAR HEMOGLOBIN 29.8 PG (27.0-31.0); MEAN CORPUSCULAR HGB CONC 33.4 % (33.0-36.5); MEAN CORPUSCULAR VOLUME 89.2 FL (78-98); MEAN PLATELET VOLUME 7.7 FL (7.4-10.4); MONOCYTES # (AUTO) 0.2 X10'3 (0-0.9); MONOCYTES % (AUTO) 1.8 % (2-12); NEUTROPHILS # (AUTO) 12.1 X10'3 (1.8-7.7); NEUTROPHILS % (AUTO) 89.9 % (42-75); PLATELET COUNT 377 X10'3 (140-440); RED BLOOD COUNT 3.04 X10'6 (4.20-5.60); RED CELL DISTRIBUTION WIDTH 15.6 % (11.5-14.5); WHITE BLOOD COUNT 13.4 X10'3 (4.5-11.0)
[2017-04-17 22:00] VITALS: BP 116/56
[2017-04-18 05:30] VITALS: BP 113/65
[2017-04-18] MEDS: ipratropium/albuterol 3ml nebule IH SCH ×4 (07:00→19:27)
[2017-04-18 07:04] LABS: BASOPHILS % (AUTO) 0.1 % (0-1); EOSINOPHILS # (AUTO) 0.3 X10'3 (0-0.9); EOSINOPHILS % (AUTO) 2.1 % (0-6); HEMATOCRIT 29.3 % (35.0-45.0); HEMOGLOBIN 9.9 g/dl (12.0-16.0); LYMPHOCYTES # (AUTO) 1.5 X10'3 (1.1-4.8); LYMPHOCYTES % (AUTO) 9.5 % (21-51); MEAN CORPUSCULAR HEMOGLOBIN 29.9 PG (27.0-31.0); MEAN CORPUSCULAR HGB CONC 33.6 % (33.0-36.5); MEAN CORPUSCULAR VOLUME 88.9 FL (78-98); MEAN PLATELET VOLUME 7.9 FL (7.4-10.4); MONOCYTES # (AUTO) 0.4 X10'3 (0-0.9); MONOCYTES % (AUTO) 2.5 % (2-12); NEUTROPHILS # (AUTO) 13.2 X10'3 (1.8-7.7); NEUTROPHILS % (AUTO) 85.8 % (42-75); PLATELET COUNT 460 X10'3 (140-440); RED CELL DISTRIBUTION WIDTH 15.4 % (11.5-14.5); WHITE BLOOD COUNT 15.3 X10'3 (4.5-11.0)
[2017-04-18] MEDS: sulfaSALAZINE 500 MG tablet PO SCH ×3 (07:21→20:17)
[2017-04-18] MEDS: lisinopril 10 MG tablet PO SCH (07:21)
[2017-04-18] MEDS: hydrocortisone sod succ/PF 100mg/2ml inj. IV SCH ×3 (07:27→23:54)
[2017-04-18] MEDS: pantoprazole 40 MG vial IV SCH (07:27)
[2017-04-18 07:41] LABS: ALANINE AMINOTRANSFERASE 19 U/L (12-78); ALBUMIN 1.9 G/DL (3.4-5.0); ALBUMIN/GLOBULIN RATIO 0.5 (1.1-1.5); ALKALINE PHOSPHATASE 58 IU/L (46-116); ANION GAP 9 (8-16); ASPARTATE AMINO TRANSFERASE 17 U/L (10-37); BILIRUBIN,TOTAL 0.3 MG/DL (0.1-1.0); BLOOD UREA NITROGEN 10 MG/DL (7-18); BUN/CREATININE RATIO 15.2 (6.6-38.0); CALCIUM 8.5 MG/DL (8.5-10.1); CHLORIDE 107 MMOL/L (99-107); CREATININE 0.66 MG/DL (0.40-0.90); GLUCOSE 136 MG/DL (70-104); MAGNESIUM 1.9 MG/DL (1.5-2.4); POTASSIUM 4.7 MMOL/L (3.5-5.1); SODIUM 140 MMOL/L (135-145); TOTAL CARBON DIOXIDE 24.4 MMOL/L (24-32); TOTAL PROTEIN 5.9 G/DL (6.4-8.2); eGFR 88 ML/MIN
[2017-04-18] MEDS: K and/or MAG REPLACEMENT MC SCH (08:00)
[2017-04-18] MEDS: fluticasone/vilanterol 200mcg/25mcg inhaler IH SCH (08:05)
[2017-04-18 10:00] VITALS: BP 133/65
[2017-04-18 11:00] LABS: BASOPHILS % (AUTO) 0 % (0-1); EOSINOPHILS # (AUTO) 0.2 X10'3 (0-0.9); EOSINOPHILS % (AUTO) 1.5 % (0-6); HEMATOCRIT 27.5 % (35.0-45.0); HEMOGLOBIN 9.2 g/dl (12.0-16.0); LYMPHOCYTES # (AUTO) 1.2 X10'3 (1.1-4.8); LYMPHOCYTES % (AUTO) 8.8 % (21-51); MEAN CORPUSCULAR HEMOGLOBIN 29.8 PG (27.0-31.0); MEAN CORPUSCULAR HGB CONC 33.3 % (33.0-36.5); MEAN CORPUSCULAR VOLUME 89.7 FL (78-98); MEAN PLATELET VOLUME 7.6 FL (7.4-10.4); MONOCYTES # (AUTO) 0.3 X10'3 (0-0.9); MONOCYTES % (AUTO) 2.3 % (2-12); NEUTROPHILS # (AUTO) 11.5 X10'3 (1.8-7.7); NEUTROPHILS % (AUTO) 87.4 % (42-75); PLATELET COUNT 404 X10'3 (140-440); RED BLOOD COUNT 3.07 X10'6 (4.20-5.60); RED CELL DISTRIBUTION WIDTH 15.6 % (11.5-14.5); WHITE BLOOD COUNT 13.1 X10'3 (4.5-11.0)
[2017-04-18 18:00] VITALS: BP 95/71
[2017-04-18] MEDS: normal saline 1000ml 1,000 ML IV SCH (20:18)
[2017-04-18 22:00] VITALS: BP 136/66
[2017-04-19 06:00] VITALS: BP 167/80
[2017-04-19 06:20] LABS: BASOPHILS % (AUTO) 0 % (0-1); EOSINOPHILS # (AUTO) 0.1 X10'3 (0-0.9); EOSINOPHILS % (AUTO) 0.9 % (0-6); HEMATOCRIT 27.9 % (35.0-45.0); HEMOGLOBIN 9.3 g/dl (12.0-16.0); LYMPHOCYTES # (AUTO) 1.2 X10'3 (1.1-4.8); LYMPHOCYTES % (AUTO) 9.5 % (21-51); MEAN CORPUSCULAR HEMOGLOBIN 29.9 PG (27.0-31.0); MEAN CORPUSCULAR HGB CONC 33.5 % (33.0-36.5); MEAN CORPUSCULAR VOLUME 89.2 FL (78-98); MEAN PLATELET VOLUME 7.8 FL (7.4-10.4); MONOCYTES # (AUTO) 0.4 X10'3 (0-0.9); MONOCYTES % (AUTO) 3.3 % (2-12); NEUTROPHILS # (AUTO) 10.9 X10'3 (1.8-7.7); NEUTROPHILS % (AUTO) 86.3 % (42-75); PLATELET COUNT 408 X10'3 (140-440); RED BLOOD COUNT 3.13 X10'6 (4.20-5.60); RED CELL DISTRIBUTION WIDTH 15.8 % (11.5-14.5); WHITE BLOOD COUNT 12.6 X10'3 (4.5-11.0)
[2017-04-19 06:47] LABS: ALANINE AMINOTRANSFERASE 24 U/L (12-78); ALBUMIN/GLOBULIN RATIO 0.5 (1.1-1.5); ALKALINE PHOSPHATASE 64 IU/L (46-116); ANION GAP 10 (8-16); ASPARTATE AMINO TRANSFERASE 13 U/L (10-37); BILIRUBIN,TOTAL 0.2 MG/DL (0.1-1.0); BLOOD UREA NITROGEN 17 MG/DL (7-18); BUN/CREATININE RATIO 27.4 (6.6-38.0); CALCIUM 8.2 MG/DL (8.5-10.1); CHLORIDE 105 MMOL/L (99-107); CREATININE 0.62 MG/DL (0.40-0.90); GLUCOSE 139 MG/DL (70-104); POTASSIUM 4.3 MMOL/L (3.5-5.1); SODIUM 139 MMOL/L (135-145); TOTAL CARBON DIOXIDE 24.5 MMOL/L (24-32); TOTAL PROTEIN 5.8 G/DL (6.4-8.2); eGFR > 90 ML/MIN
[2017-04-19] MEDS: K and/or MAG REPLACEMENT MC SCH (08:00)
[2017-04-19] MEDS: ipratropium/albuterol 3ml nebule IH SCH ×3 (08:12→14:38)
[2017-04-19] MEDS: fluticasone/vilanterol 200mcg/25mcg inhaler IH SCH (08:12)
[2017-04-19] MEDS: sulfaSALAZINE 500 MG tablet PO SCH ×2 (08:58→14:04)
[2017-04-19] MEDS: hydrocortisone sod succ/PF 100mg/2ml inj. IV SCH (08:58)
[2017-04-19] MEDS: pantoprazole 40 MG vial IV SCH (08:58)
[2017-04-19] MEDS: lisinopril 10 MG tablet PO SCH (08:58)
[2017-04-19] MEDS: ondansetron/PF 4mg/2ml inj IV PRN (09:02)
[2017-04-19 10:00] VITALS: BP 140/75
[2017-04-20] MEDS ORDERED: pantoprazole 40mg Tablet.DR PO SCH (07:30)
== END 2017-04-19 17:50 | disposition home health service (06) | DRG 378 ==
LOC: ER 19:20 → ED HOLD 21:04 → ORTHO 4S 23:16
PROVIDERS: ADMIT Internal Medicine; ATTEND Internal Medicine
DX: K92.1 Melena (principal); K51.90 Ulcerative colitis, unspecified, without complications; E44.0 Moderate protein-calorie malnutrition; D62 Acute posthemorrhagic anemia; J44.9 Chronic obstructive pulmonary disease, unspecified; Z68.1 Body mass index [BMI] 19.9 or less, adult; E11.9 Type 2 diabetes mellitus without complications; G30.9 Alzheimer's disease, unspecified; F02.80 Dementia in other diseases classified elsewhere, unspecified severity, without behavioral disturbance, psychotic disturbance, mood disturbance, and anxiety; R74.0 Nonspecific elevation of levels of transaminase and lactic acid dehydrogenase [LDH]; I10 Essential (primary) hypertension; I25.10 Atherosclerotic heart disease of native coronary artery without angina pectoris; Z51.5 Encounter for palliative care; Z66 Do not resuscitate; Z79.899 Other long term (current) drug therapy; Z87.891 Personal history of nicotine dependence
CPT/HCPCS: 36415; 71045; 80053; 83605; 83735; 85025; 85027; 85610; 85730; 86885; 86900; 86901; 87040; 87070; 93005; 94640; 94760; 97116; 97162; 99285; A4315; A6213; C9113; J1720; J2405; J7030

== ENCOUNTER 2017-04-21 13:00 | Inpatient (IN) | payer MEDICARE, OTHER ==
[~2017-04-21] VITALS: Ht 162.6 cm; Wt 54.5 kg
[~2017-04-21 13:00] MED LIST changes: -BENA40TA2 PO; -Budesonide PO; -NOR5T PO
[2017-04-21] MEDS ORDERED: ondansetron/PF 4mg/2ml inj IV ONE (13:25)
[2017-04-21] MEDS ORDERED: normal saline 1000ML IV soln IVB ONE (13:25)
[2017-04-21 13:54] LABS: BASOPHILS % (AUTO) 0.1 % (0-1); EOSINOPHILS # (AUTO) 0.3 X10'3 (0-0.9); EOSINOPHILS % (AUTO) 1.6 % (0-6); HEMATOCRIT 30.2 % (35.0-45.0); HEMOGLOBIN 10.1 g/dl (12.0-16.0); LYMPHOCYTES # (AUTO) 1.2 X10'3 (1.1-4.8); LYMPHOCYTES % (AUTO) 7.4 % (21-51); MEAN CORPUSCULAR HEMOGLOBIN 29.5 PG (27.0-31.0); MEAN CORPUSCULAR HGB CONC 33.5 % (33.0-36.5); MEAN CORPUSCULAR VOLUME 87.9 FL (78-98); MEAN PLATELET VOLUME 7.4 FL (7.4-10.4); MONOCYTES # (AUTO) 0.4 X10'3 (0-0.9); MONOCYTES % (AUTO) 2.7 % (2-12); NEUTROPHILS # (AUTO) 13.9 X10'3 (1.8-7.7); NEUTROPHILS % (AUTO) 88.2 % (42-75); PLATELET COUNT 353 X10'3 (140-440); RED BLOOD COUNT 3.44 X10'6 (4.20-5.60); RED CELL DISTRIBUTION WIDTH 15.5 % (11.5-14.5); WHITE BLOOD COUNT 15.8 X10'3 (4.5-11.0)
[2017-04-21 14:09] LABS: ALANINE AMINOTRANSFERASE 24 U/L (12-78); ALBUMIN/GLOBULIN RATIO 0.5 (1.1-1.5); ALKALINE PHOSPHATASE 55 IU/L (46-116); ANION GAP 7 (8-16); ASPARTATE AMINO TRANSFERASE 23 U/L (10-37); BILIRUBIN,TOTAL 0.6 MG/DL (0.1-1.0); BLOOD UREA NITROGEN 9 MG/DL (7-18); CALCIUM 7.9 MG/DL (8.5-10.1); CHLORIDE 96 MMOL/L (99-107); CREATININE 0.53 MG/DL (0.40-0.90); GLUCOSE 80 MG/DL (70-104); LIPASE < 50 U/L (73-393); POTASSIUM 3.1 MMOL/L (3.5-5.1); SODIUM 134 MMOL/L (135-145); TOTAL CARBON DIOXIDE 30.7 MMOL/L (24-32); TOTAL PROTEIN 5.9 G/DL (6.4-8.2); eGFR > 90 ML/MIN
[2017-04-21] MEDS ORDERED: potassium 10mEq/100ml NS w/LIDOcaine (10mg/bag) IV ONE (14:15)
[2017-04-21 14:30] LABS: MAGNESIUM 1.5 MG/DL (1.5-2.4)
[2017-04-21] MEDS ORDERED: ondansetron/PF 4mg/2ml inj IV PRN (14:50)
[2017-04-21] MEDS ORDERED: acetaminophen 325mg tablet PO PRN (14:50)
[2017-04-21] MEDS ORDERED: magnesium hydroxide 30ml (MOM) UD suspension PO PRN (14:50)
[2017-04-21] MEDS: potassium cl 20mEq in 1/2 NS 1,000 ML IV SCH (15:57)
[2017-04-21] MEDS ORDERED: potassium cl 20mEq in 1/2 NS 1,000 ML IV SCH (16:10)
[2017-04-21] MEDS: cefTRIAXone 1g/NS 100ml IVPB 100 ML IV SCH (16:47)
[2017-04-21 19:00] VITALS: BP 127/67
[2017-04-21] MEDS: hydrocortisone sod succ/PF 100mg/2ml inj. IV SCH (21:32)
[2017-04-22] VITALS: BP 116/59
[2017-04-22] MEDS: potassium cl 20mEq in 1/2 NS 1,000 ML IV SCH ×3 (02:17→14:50)
[2017-04-22] MEDS: hydrocortisone sod succ/PF 100mg/2ml inj. IV SCH ×4 (02:17→20:08)
[2017-04-22] MEDS: cefTRIAXone 1g/NS 100ml IVPB 100 ML IV SCH (07:33)
[2017-04-22 07:48] VITALS: BP 115/59
[2017-04-22 11:00] VITALS: BP 119/56
[2017-04-22] MEDS ORDERED: potassium Cl 40MEQ/NS 500ml 500 ML IV PRN ×2 (15:35)
[2017-04-22] MEDS ORDERED: magnesium 4gm in 100ml NS 100 ML IV PRN (15:35)
[2017-04-22] MEDS ORDERED: magnesium 2GM in 50ml NS 50 ML IV PRN (15:35)
[2017-04-22] MEDS ORDERED: potassium Cl 20 mEq SR tablet PO PRN ×2 (15:35)
[2017-04-22] MEDS ORDERED: magnesium Cl slow-release 64mg tablet PO PRN (15:35)
[2017-04-22 17:13] LABS: POTASSIUM 4.3 MMOL/L (3.5-5.1)
[2017-04-22 18:00] VITALS: BP 109/60
[2017-04-22] MEDS: mag hydrox/Alum hydrox/simeth 30ml oral suspension PO PRN (23:53)
[2017-04-23] VITALS: BP 159/87
[2017-04-23] MEDS: potassium cl 20mEq in 1/2 NS 1,000 ML IV SCH ×2 (00:40→12:37)
[2017-04-23] MEDS: hydrocortisone sod succ/PF 100mg/2ml inj. IV SCH ×4 (01:48→19:25)
[2017-04-23 05:24] LABS: BASOPHILS % (AUTO) 0.1 % (0-1); EOSINOPHILS # (AUTO) 0.2 X10'3 (0-0.9); EOSINOPHILS % (AUTO) 1.5 % (0-6); HEMATOCRIT 30.1 % (35.0-45.0); HEMOGLOBIN 9.9 g/dl (12.0-16.0); LYMPHOCYTES # (AUTO) 1.1 X10'3 (1.1-4.8); LYMPHOCYTES % (AUTO) 9.6 % (21-51); MEAN CORPUSCULAR HEMOGLOBIN 29.3 PG (27.0-31.0); MEAN CORPUSCULAR HGB CONC 33.1 % (33.0-36.5); MEAN CORPUSCULAR VOLUME 88.6 FL (78-98); MEAN PLATELET VOLUME 7.9 FL (7.4-10.4); MONOCYTES # (AUTO) 0.3 X10'3 (0-0.9); MONOCYTES % (AUTO) 2.8 % (2-12); NEUTROPHILS # (AUTO) 9.7 X10'3 (1.8-7.7); PLATELET COUNT 354 X10'3 (140-440); RED BLOOD COUNT 3.39 X10'6 (4.20-5.60); RED CELL DISTRIBUTION WIDTH 15.5 % (11.5-14.5); WHITE BLOOD COUNT 11.2 X10'3 (4.5-11.0)
[2017-04-23 06:22] LABS: POTASSIUM 4.5 MMOL/L (3.5-5.1)
[2017-04-23] MEDS: cefTRIAXone 1g/NS 100ml IVPB 100 ML IV SCH (07:25)
[2017-04-23 07:50] VITALS: BP 194/90
[2017-04-23 08:04] VITALS: BP 167/88
[2017-04-23 12:00] VITALS: BP 152/84
[2017-04-23] MEDS: mag hydrox/Alum hydrox/simeth 30ml oral suspension PO PRN (16:27)
[2017-04-23] MEDS: albuterol 2.5 MG/3 ML nebule NEB PRN (16:51)
[2017-04-23 20:00] VITALS: BP 173/78
[2017-04-23] MEDS: cloNIDine 0.1 mg tablet PO SCH (21:45)
[2017-04-23 23:23] VITALS: BP 97/51
[2017-04-24 00:50] VITALS: BP 98/48
[2017-04-24] MEDS: hydrocortisone sod succ/PF 100mg/2ml inj. IV SCH ×4 (01:56→20:21)
[2017-04-24] MEDS: potassium cl 20mEq in 1/2 NS 1,000 ML IV SCH ×3 (02:00→23:31)
[2017-04-24 02:46] VITALS: BP 132/64
[2017-04-24 05:23] LABS: BASOPHILS % (AUTO) 0.1 % (0-1); EOSINOPHILS # (AUTO) 0.1 X10'3 (0-0.9); EOSINOPHILS % (AUTO) 1.5 % (0-6); HEMATOCRIT 27.7 % (35.0-45.0); HEMOGLOBIN 9.4 g/dl (12.0-16.0); LYMPHOCYTES # (AUTO) 0.8 X10'3 (1.1-4.8); LYMPHOCYTES % (AUTO) 9.5 % (21-51); MEAN CORPUSCULAR HEMOGLOBIN 29.7 PG (27.0-31.0); MEAN CORPUSCULAR VOLUME 87.4 FL (78-98); MEAN PLATELET VOLUME 7.6 FL (7.4-10.4); MONOCYTES # (AUTO) 0.4 X10'3 (0-0.9); MONOCYTES % (AUTO) 4.4 % (2-12); NEUTROPHILS # (AUTO) 7.1 X10'3 (1.8-7.7); NEUTROPHILS % (AUTO) 84.5 % (42-75); PLATELET COUNT 303 X10'3 (140-440); RED BLOOD COUNT 3.17 X10'6 (4.20-5.60); RED CELL DISTRIBUTION WIDTH 15.8 % (11.5-14.5); WHITE BLOOD COUNT 8.4 X10'3 (4.5-11.0)
[2017-04-24 06:02] LABS: ALANINE AMINOTRANSFERASE 18 U/L (12-78); ALBUMIN 1.7 G/DL (3.4-5.0); ALBUMIN/GLOBULIN RATIO 0.5 (1.1-1.5); ALKALINE PHOSPHATASE 43 IU/L (46-116); ANION GAP 4 (8-16); ASPARTATE AMINO TRANSFERASE 16 U/L (10-37); BILIRUBIN,TOTAL 0.3 MG/DL (0.1-1.0); BLOOD UREA NITROGEN 12 MG/DL (7-18); BUN/CREATININE RATIO 33.3 (6.6-38.0); CALCIUM 8.1 MG/DL (8.5-10.1); CHLORIDE 102 MMOL/L (99-107); CREATININE 0.36 MG/DL (0.40-0.90); GLUCOSE 142 MG/DL (70-104); MAGNESIUM 1.9 MG/DL (1.5-2.4); POTASSIUM 4.6 MMOL/L (3.5-5.1); PREALBUMIN 11.7 MG/DL (19-36); SODIUM 136 MMOL/L (135-145); TOTAL CARBON DIOXIDE 29.9 MMOL/L (24-32); TOTAL PROTEIN 4.9 G/DL (6.4-8.2); eGFR > 90 ML/MIN
[2017-04-24 07:00] VITALS: BP 132/65
[2017-04-24] MEDS: albuterol 2.5 MG/3 ML nebule NEB PRN (07:35)
[2017-04-24] MEDS: nutritional supplement (Nutren 2.0) 250ml bottle PO SCH ×2 (08:00→11:37)
[2017-04-24] MEDS: cloNIDine 0.1 mg tablet PO SCH ×2 (08:20→20:21)
[2017-04-24] MEDS: cefTRIAXone 1g/NS 100ml IVPB 100 ML IV SCH (08:20)
[2017-04-24 12:00] VITALS: BP 124/63
[2017-04-24 18:00] VITALS: BP 144/91
[2017-04-24] MEDS: LACTOSE-FREE FOOD 237ML (BOOST) PO SCH (18:02)
[2017-04-25] VITALS: BP 123/67
[2017-04-25] MEDS: hydrocortisone sod succ/PF 100mg/2ml inj. IV SCH ×3 (01:51→13:09)
[2017-04-25 08:00] VITALS: BP 143/74
[2017-04-25] MEDS: LACTOSE-FREE FOOD 237ML (BOOST) PO SCH ×3 (08:00→17:48)
[2017-04-25 08:02] LABS: MAGNESIUM 1.8 MG/DL (1.5-2.4); POTASSIUM 4.2 MMOL/L (3.5-5.1)
[2017-04-25] MEDS: cefTRIAXone 1g/NS 100ml IVPB 100 ML IV SCH (08:58)
[2017-04-25] MEDS: potassium cl 20mEq in 1/2 NS 1,000 ML IV SCH (09:00)
[2017-04-25] MEDS: cloNIDine 0.1 mg tablet PO SCH ×2 (09:05→21:13)
[2017-04-25 11:46] VITALS: BP 146/64
[2017-04-25 19:00] VITALS: BP 144/69
[2017-04-26] VITALS: BP 139/68
[2017-04-26 05:35] LABS: MAGNESIUM 1.6 MG/DL (1.5-2.4); POTASSIUM 4.3 MMOL/L (3.5-5.1)
[2017-04-26] MEDS ORDERED: CLON0.1T20 PO (07:59)
[2017-04-26] MEDS ORDERED: PRED20TA PO (07:59)
[2017-04-26] MEDS ORDERED: FERR325T39 PO (08:01)
[2017-04-26] MEDS: LACTOSE-FREE FOOD 237ML (BOOST) PO SCH ×4 (08:08→18:06)
[2017-04-26 08:12] VITALS: BP 155/79
[2017-04-26] MEDS: cloNIDine 0.1 mg tablet PO SCH ×2 (08:16→20:20)
[2017-04-26] MEDS: predniSONE 20 mg tablet PO SCH (08:16)
[2017-04-26 08:32] VITALS: BP 155/79
[2017-04-26 12:32] VITALS: BP 106/62
[2017-04-26 20:00] VITALS: BP 143/73
[2017-04-27] VITALS: BP 155/76
[2017-04-27 05:35] LABS: MAGNESIUM 1.7 MG/DL (1.5-2.4); POTASSIUM 3.7 MMOL/L (3.5-5.1)
[2017-04-27 07:24] VITALS: BP 109/74
[2017-04-27] MEDS: cloNIDine 0.1 mg tablet PO SCH (07:35)
[2017-04-27] MEDS: predniSONE 20 mg tablet PO SCH (07:37)
[2017-04-27] MEDS: LACTOSE-FREE FOOD 237ML (BOOST) PO SCH (08:16)
[2017-04-27 11:52] VITALS: BP 107/65
== END 2017-04-27 13:59 | DRG 872 ==
LOC: ER 13:01 → ED HOLD 14:48 → SUR 3N 18:52
PROVIDERS: ADMIT Internal Medicine; ATTEND Family Medicine
DX: A41.9 Sepsis, unspecified organism (principal); E44.0 Moderate protein-calorie malnutrition; K51.911 Ulcerative colitis, unspecified with rectal bleeding; D62 Acute posthemorrhagic anemia; E86.0 Dehydration; J44.9 Chronic obstructive pulmonary disease, unspecified; E87.6 Hypokalemia; I10 Essential (primary) hypertension; R74.0 Nonspecific elevation of levels of transaminase and lactic acid dehydrogenase [LDH]; Z51.5 Encounter for palliative care; Z66 Do not resuscitate; Z79.899 Other long term (current) drug therapy; Z83.3 Family history of diabetes mellitus; Z68.20 Body mass index [BMI] 20.0-20.9, adult
CPT/HCPCS: 36415; 80053; 83605; 83690; 83735; 84132; 84134; 84295; 85025; 87040; 87070; 94640; 94760; 96361; 96374; 96375; 97110; 97116; 97530; 99285; A6212; A6213; J0696; J1720; J2405; J3480; J7030; J7512

== ENCOUNTER 2017-11-30 14:29 | Inpatient (IN) | payer MEDICARE, OTHER ==
[~2017-11-30] VITALS: Ht 149.9 cm; Wt 45.4 kg
[~2017-11-30 14:29] MED LIST changes: +ADV50500 INH; -ALBU8HFA PO; +CLON0.1T20 PO; +FERR-119 PO; -FLUT1DIS7 INH; -IPRA3AMP IH; +IPRA3AMP31; +OMEP40CA37; +PRE5T PO
[2017-11-30] MEDS ORDERED: ipratropium/albuterol 3ml nebule NEB ONE (15:55)
[2017-11-30] MEDS ORDERED: methylPREDNISolone sod succ 125mg/2ml vial IV ONE (15:55)
[2017-11-30] MEDS ORDERED: furosemide 40mg/4ml inj IV ONE (15:55)
[2017-11-30 16:25] LABS: ABG BASE EXCESS 3.3 mmol/L (-2.0-3.0); ABG HCO3 28.2 mmol/L (22.0-26.0); ABG OXYGEN SATURATION 98.2 % (95-98); ABG PCO2 (T) 43.8 mmHg (32.0-45.0); ABG PH (T) 7.426 (7.350-7.450); ABG PO2 (T) 138.3 mmHg (83-108); ALLEN'S TEST Positive; FMetHb 0.3 % (0.3-1.12); FO2Hb 96.9 % (94-100); TOTAL HEMOGLOBIN 11.8 G/dl (12.0-16.0)
[2017-11-30 16:29] LABS: BASOPHILS % (AUTO) 0.2 % (0-1); EOSINOPHILS # (AUTO) 0.1 X10'3 (0-0.9); EOSINOPHILS % (AUTO) 1.1 % (0-6); HEMATOCRIT 34.2 % (35.0-45.0); HEMOGLOBIN 11.4 g/dl (12.0-16.0); LYMPHOCYTES # (AUTO) 1.2 X10'3 (1.1-4.8); LYMPHOCYTES % (AUTO) 9.3 % (21-51); MEAN CORPUSCULAR HEMOGLOBIN 31.6 PG (27.0-31.0); MEAN CORPUSCULAR HGB CONC 33.4 % (33.0-36.5); MEAN CORPUSCULAR VOLUME 94.7 FL (78-98); MONOCYTES # (AUTO) 0.4 X10'3 (0-0.9); NEUTROPHILS # (AUTO) 10.8 X10'3 (1.8-7.7); NEUTROPHILS % (AUTO) 86.4 % (42-75); PLATELET COUNT 207 X10'3 (140-440); RED BLOOD COUNT 3.62 X10'6 (4.20-5.60); RED CELL DISTRIBUTION WIDTH 17.1 % (11.5-14.5); WHITE BLOOD COUNT 12.5 X10'3 (4.5-11.0)
[2017-11-30 16:51] LABS: ANION GAP 8 (8-16); BLOOD UREA NITROGEN 24 MG/DL (7-18); BUN/CREATININE RATIO 33.3 (6.6-38.0); CHLORIDE 102 MMOL/L (99-107); CREATININE 0.72 MG/DL (0.40-0.90); GLUCOSE 309 MG/DL (70-104); SODIUM 141 MMOL/L (135-145); TOTAL CARBON DIOXIDE 30.9 MMOL/L (24-32)
[2017-11-30 16:52] LABS: ALANINE AMINOTRANSFERASE 25 U/L (12-78); ALBUMIN 2.7 G/DL (3.4-5.0); ALBUMIN/GLOBULIN RATIO 0.8 (1.1-1.5); ALKALINE PHOSPHATASE 82 IU/L (46-116); ASPARTATE AMINO TRANSFERASE 9 U/L (10-37); BILIRUBIN,TOTAL 0.5 MG/DL (0.1-1.0); CALCIUM 9.4 MG/DL (8.5-10.1); eGFR 79 ML/MIN
[2017-11-30 16:55] LABS: POTASSIUM 2.6 MMOL/L (3.5-5.1)
[2017-11-30] MEDS ORDERED: CefTRIAXone 2gm/D5W 50ml 50 ML IV ONE (16:55)
[2017-11-30] MEDS ORDERED: normal saline 1000ML IV soln IV ONE (16:55)
[2017-11-30] MEDS ORDERED: azithromycin/NS 500mg/250ml 250 ML IV ONE (16:55)
[2017-11-30] MEDS ORDERED: potassium Cl oral solution 20 MEQ/15 ML PO ONE (17:00)
[2017-11-30 17:32] LABS: TOTAL CELLS COUNTED 100
[2017-11-30 17:33] LABS: ANISOCYTOSIS 1+; PLATELET ESTIMATE NORMAL
[2017-11-30 18:51] LABS: CLARITY,URINE CLEAR (Clear); COLOR,URINE STRAW (Yellow); GLUCOSE, URINE 250 mg/dl (Neg); KETONES,URINE NEGATIVE (Neg); LEUKOCYTE ESTERASE ,URINE NEGATIVE (Neg); NITRITES, URINE NEGATIVE (Neg); OCCULT BLOOD,URINE TRACE-INTACT (Neg); PH,URINE 5.5 (4.8-8.0); PROTEIN,URINE NEGATIVE (Neg); UA COLLECTION TYPE CLN CATCH MIDSTREAM; UROBILINOGEN,URINE 0.2 E.U/dL (0.2-1.0)
[2017-11-30 18:57] LABS: HYALINE CASTS 0-3 /LPF (NEGATIVE); MUCUS STRANDS FEW /LPF (Neg); SQUAMOUS EPITHELIAL CELL,UR FEW /LPF (FEW)
[2017-11-30 18:58] LABS: BACTERIA,URINE FEW /HPF (Neg); RBC,URINE 0-2 /HPF (0-2); WBC,URINE 0-4 /HPF (0-4)
[2017-11-30] MEDS ORDERED: magnesium 4gm in 100ml NS 100 ML IV PRN (19:00)
[2017-11-30] MEDS ORDERED: magnesium hydroxide 30ml (MOM) UD suspension PO PRN (19:00)
[2017-11-30] MEDS ORDERED: magnesium Cl slow-release 64mg tablet PO PRN (19:00)
[2017-11-30] MEDS ORDERED: acetaminophen 325mg tablet PO PRN (19:00)
[2017-11-30] MEDS ORDERED: albuterol 2.5 MG/3 ML nebule NEB PRN (19:00)
[2017-11-30] MEDS ORDERED: potassium Cl 20 mEq SR tablet PO PRN ×2 (19:00)
[2017-11-30] MEDS ORDERED: potassium Cl 40MEQ/NS 500ml 500 ML IV PRN ×2 (19:00)
[2017-11-30] MEDS ORDERED: mag hydrox/Alum hydrox/simeth 30ml oral suspension PO PRN (19:00)
[2017-11-30] MEDS ORDERED: SALMETEROL INH SCH (20:00)
[2017-11-30] MEDS ORDERED: FLUTICASONE INH SCH (20:00)
[2017-11-30 20:15] VITALS: BP_SYST 145; BP_SYST 149; BP_SYST 152; BP_DIAS 76; BP_DIAS 78; BP_DIAS 81
[2017-11-30] MEDS: ipratropium/albuterol 3ml nebule NEB SCH (21:03)
[2017-11-30] MEDS: budesonide 0.5mg/2ml UD nebule IH SCH (21:03)
[2017-11-30 22:18] LABS: HEMOGLOBIN A1C 7.5 % (4.5-6.2)
[2017-11-30] MEDS: sulfaSALAZINE 500 MG tablet PO SCH (22:35)
[2017-11-30] MEDS: prednisoLONE 15mg/5ml oral solution 5ml cup PO SCH (22:36)
[2017-12-01] VITALS (7 sets, daily range): BP systolic 147–189; BP diastolic 77–96
[2017-12-01] MEDS: ipratropium/albuterol 3ml nebule NEB SCH ×3 (06:00→21:44)
[2017-12-01 06:11] LABS: ALBUMIN 2.4 G/DL (3.4-5.0); ANION GAP 9 (8-16); BLOOD UREA NITROGEN 19 MG/DL (7-18); BUN/CREATININE RATIO 36.5 (6.6-38.0); CALCIUM 8.1 MG/DL (8.5-10.1); CHLORIDE 105 MMOL/L (99-107); CREATININE 0.52 MG/DL (0.40-0.90); GLUCOSE 234 MG/DL (70-104); MAGNESIUM 1.6 MG/DL (1.5-2.4); PHOSPHORUS 2.9 MG/DL (2.3-4.5); POTASSIUM 3.8 MMOL/L (3.5-5.1); SODIUM 145 MMOL/L (135-145); TOTAL CARBON DIOXIDE 30.9 MMOL/L (24-32); eGFR > 90 ML/MIN
[2017-12-01 06:28] LABS: HEMATOCRIT 30.8 % (35.0-45.0); HEMOGLOBIN 10.8 g/dl (12.0-16.0); MEAN CORPUSCULAR HGB CONC 35.1 % (33.0-36.5); MEAN CORPUSCULAR VOLUME 94.1 FL (78-98); MEAN PLATELET VOLUME 8.4 FL (7.4-10.4); PLATELET COUNT 172 X10'3 (140-440); RED BLOOD COUNT 3.28 X10'6 (4.20-5.60); RED CELL DISTRIBUTION WIDTH 15.6 % (11.5-14.5); WHITE BLOOD COUNT 11.7 X10'3 (4.5-11.0)
[2017-12-01 06:29] LABS: BASOPHILS % (AUTO) 0.1 % (0-1); EOSINOPHILS % (AUTO) 0 % (0-6); LYMPHOCYTES # (AUTO) 1.8 X10'3 (1.1-4.8); LYMPHOCYTES % (AUTO) 15.4 % (21-51); MONOCYTES # (AUTO) 0.3 X10'3 (0-0.9); MONOCYTES % (AUTO) 2.9 % (2-12); NEUTROPHILS # (AUTO) 9.6 X10'3 (1.8-7.7); NEUTROPHILS % (AUTO) 81.6 % (42-75)
[2017-12-01] MEDS: budesonide 0.5mg/2ml UD nebule IH SCH ×2 (07:16→21:44)
[2017-12-01] MEDS: albuterol 2.5 MG/3 ML nebule NEB SCH ×3 (07:17→15:00)
[2017-12-01] MEDS: K and/or MAG REPLACEMENT MC SCH (08:00)
[2017-12-01] MEDS: CefTRIAXone 2gm/D5W 50ml 50 ML IV SCH (08:05)
[2017-12-01] MEDS: ferrous sulfate 325mg tablet PO SCH (08:06)
[2017-12-01] MEDS: prednisoLONE 15mg/5ml oral solution 5ml cup PO SCH ×3 (08:06→22:13)
[2017-12-01] MEDS: sulfaSALAZINE 500 MG tablet PO SCH ×3 (08:08→22:13)
[2017-12-01] MEDS: enoxaparin 40mg/0.4ml syringe SQ SCH (08:19)
[2017-12-01] MEDS: DOXYCYCLINE 100 MG in NORMAL SALINE 100ml IV.SOLN IV SCH ×2 (09:05→19:46)
[2017-12-01] MEDS ORDERED: dextrose 50%-water 50ml dispensing syringe IV PRN ×2 (13:55)
[2017-12-01] MEDS ORDERED: MESSAGE TO PHARMACY PO ONE (13:55)
[2017-12-01] MEDS ORDERED: dextrose ORAL solution 15 GM/59 ML bottle PO PRN ×2 (13:55)
[2017-12-01] MEDS ORDERED: glucagon, human recombinant 1mg kit SUBCUT PRN (13:55)
[2017-12-01] MEDS: insulin Lispro (HumaLOG) vial - multi-dose SQ SCH (19:50)
[2017-12-01] MEDS: insulin glargine (Lantus) pen - multi-dose SQ SCH (22:19)
[2017-12-02] VITALS: BP_SYST 150; BP_SYST 176; BP_DIAS 86; BP_DIAS 99
[2017-12-02] MEDS: acetaminophen 325mg tablet PO PRN ×2 (03:57→19:28)
[2017-12-02 05:43] LABS: BASOPHILS % (AUTO) 0 % (0-1); EOSINOPHILS % (AUTO) 0.1 % (0-6); HEMATOCRIT 30.6 % (35.0-45.0); HEMOGLOBIN 10.7 g/dl (12.0-16.0); LYMPHOCYTES # (AUTO) 2.4 X10'3 (1.1-4.8); LYMPHOCYTES % (AUTO) 18.6 % (21-51); MEAN CORPUSCULAR HEMOGLOBIN 32.8 PG (27.0-31.0); MEAN CORPUSCULAR HGB CONC 34.9 % (33.0-36.5); MEAN CORPUSCULAR VOLUME 94.1 FL (78-98); MONOCYTES # (AUTO) 0.4 X10'3 (0-0.9); MONOCYTES % (AUTO) 3.4 % (2-12); NEUTROPHILS # (AUTO) 10.2 X10'3 (1.8-7.7); NEUTROPHILS % (AUTO) 77.9 % (42-75); PLATELET COUNT 187 X10'3 (140-440); RED BLOOD COUNT 3.26 X10'6 (4.20-5.60); RED CELL DISTRIBUTION WIDTH 15.8 % (11.5-14.5); WHITE BLOOD COUNT 13.1 X10'3 (4.5-11.0)
[2017-12-02 05:51] LABS: ALBUMIN 2.4 G/DL (3.4-5.0); ANION GAP 4 (8-16); BLOOD UREA NITROGEN 19 MG/DL (7-18); BUN/CREATININE RATIO 40.4 (6.6-38.0); CALCIUM 8.4 MG/DL (8.5-10.1); CHLORIDE 100 MMOL/L (99-107); CREATININE 0.47 MG/DL (0.40-0.90); GLUCOSE 178 MG/DL (70-104); MAGNESIUM 1.6 MG/DL (1.5-2.4); PHOSPHORUS 2.6 MG/DL (2.3-4.5); POTASSIUM 3.3 MMOL/L (3.5-5.1); SODIUM 137 MMOL/L (135-145); eGFR > 90 ML/MIN
[2017-12-02 07:08] VITALS: BP_SYST 156; BP_SYST 186; BP_DIAS 85
[2017-12-02 07:12] VITALS: BP_SYST 152; BP_SYST 156; BP_SYST 157; BP_DIAS 84; BP_DIAS 85; BP_DIAS 92
[2017-12-02] MEDS: K and/or MAG REPLACEMENT MC SCH (08:00)
[2017-12-02] MEDS ORDERED: potassium Cl oral solution 20 MEQ/15 ML PO PRN (08:44)
[2017-12-02] MEDS: sulfaSALAZINE 500 MG tablet PO SCH ×3 (08:47→20:33)
[2017-12-02] MEDS: ferrous sulfate 325mg tablet PO SCH (08:47)
[2017-12-02] MEDS: prednisoLONE 15mg/5ml oral solution 5ml cup PO SCH ×3 (08:47→20:34)
[2017-12-02] MEDS: CefTRIAXone 2gm/D5W 50ml 50 ML IV SCH (08:47)
[2017-12-02] MEDS: budesonide 0.5mg/2ml UD nebule IH SCH ×2 (08:50→20:43)
[2017-12-02] MEDS: ipratropium/albuterol 3ml nebule NEB SCH ×3 (08:52→20:43)
[2017-12-02] MEDS: insulin Lispro (HumaLOG) vial - multi-dose SQ SCH ×3 (09:04→19:33)
[2017-12-02] MEDS: enoxaparin 40mg/0.4ml syringe SQ SCH (09:05)
[2017-12-02] MEDS: potassium Cl oral solution 20 MEQ/15 ML PO PRN ×3 (09:08→17:55)
[2017-12-02] MEDS: DOXYCYCLINE 100 MG in NORMAL SALINE 100ml IV.SOLN IV SCH ×2 (10:12→20:34)
[2017-12-02 11:56] VITALS: BP 163/90
[2017-12-02 12:19] VITALS: BP 149/78
[2017-12-02] MEDS: lactobacillus rhamnosus 10,000 MMU CELLS/CAPSULE PO SCH (19:28)
[2017-12-02 20:00] VITALS: BP 151/79
[2017-12-02] MEDS: insulin glargine (Lantus) pen - multi-dose SQ SCH (21:57)
[2017-12-03] VITALS (8 sets, daily range): BP systolic 108–173; BP diastolic 51–95
[2017-12-03 05:11] LABS: BASOPHILS % (AUTO) 0 % (0-1); EOSINOPHILS % (AUTO) 0.1 % (0-6); HEMATOCRIT 32.1 % (35.0-45.0); HEMOGLOBIN 11.5 g/dl (12.0-16.0); LYMPHOCYTES % (AUTO) 21.3 % (21-51); MEAN CORPUSCULAR HEMOGLOBIN 33.3 PG (27.0-31.0); MEAN CORPUSCULAR HGB CONC 35.8 % (33.0-36.5); MEAN CORPUSCULAR VOLUME 93.1 FL (78-98); MEAN PLATELET VOLUME 8.1 FL (7.4-10.4); MONOCYTES # (AUTO) 0.4 X10'3 (0-0.9); MONOCYTES % (AUTO) 2.8 % (2-12); NEUTROPHILS # (AUTO) 10.8 X10'3 (1.8-7.7); NEUTROPHILS % (AUTO) 75.8 % (42-75); PLATELET COUNT 206 X10'3 (140-440); RED BLOOD COUNT 3.45 X10'6 (4.20-5.60); RED CELL DISTRIBUTION WIDTH 15.8 % (11.5-14.5); WHITE BLOOD COUNT 14.2 X10'3 (4.5-11.0)
[2017-12-03 05:12] LABS: ALBUMIN 2.5 G/DL (3.4-5.0); ANION GAP 7 (8-16); BLOOD UREA NITROGEN 25 MG/DL (7-18); BUN/CREATININE RATIO 56.8 (6.6-38.0); CALCIUM 8.8 MG/DL (8.5-10.1); CHLORIDE 101 MMOL/L (99-107); CREATININE 0.44 MG/DL (0.40-0.90); GLUCOSE 180 MG/DL (70-104); MAGNESIUM 1.4 MG/DL (1.5-2.4); PHOSPHORUS 3.1 MG/DL (2.3-4.5); POTASSIUM 4.2 MMOL/L (3.5-5.1); SODIUM 137 MMOL/L (135-145); TOTAL CARBON DIOXIDE 28.8 MMOL/L (24-32); eGFR > 90 ML/MIN
[2017-12-03] MEDS: lactobacillus rhamnosus 10,000 MMU CELLS/CAPSULE PO SCH ×2 (07:19→21:17)
[2017-12-03] MEDS: ferrous sulfate 325mg tablet PO SCH (07:20)
[2017-12-03] MEDS: sulfaSALAZINE 500 MG tablet PO SCH ×3 (07:20→21:17)
[2017-12-03] MEDS: prednisoLONE 15mg/5ml oral solution 5ml cup PO SCH ×3 (07:21→21:17)
[2017-12-03] MEDS: enoxaparin 40mg/0.4ml syringe SQ SCH (07:22)
[2017-12-03] MEDS: CefTRIAXone 2gm/D5W 50ml 50 ML IV SCH (07:22)
[2017-12-03] MEDS: K and/or MAG REPLACEMENT MC SCH (08:00)
[2017-12-03] MEDS: acetaminophen 325mg tablet PO PRN (08:53)
[2017-12-03] MEDS: insulin Lispro (HumaLOG) vial - multi-dose SQ SCH ×3 (09:04→18:51)
[2017-12-03] MEDS: DOXYCYCLINE 100 MG in NORMAL SALINE 100ml IV.SOLN IV SCH ×2 (09:08→21:17)
[2017-12-03] MEDS: ipratropium/albuterol 3ml nebule NEB SCH ×3 (09:09→20:43)
[2017-12-03] MEDS: budesonide 0.5mg/2ml UD nebule IH SCH ×2 (09:11→20:43)
[2017-12-03] MEDS: hydrALAZINE 20mg/ml inj. IV PRN ×2 (10:41)
[2017-12-03] MEDS: magnesium 1gm/100ml D5W IVPB 100 ML IV PRN ×2 (13:36→15:14)
[2017-12-03] MEDS: insulin glargine (Lantus) pen - multi-dose SQ SCH (21:22)
[2017-12-04] VITALS: BP_SYST 139; BP_SYST 142; BP_DIAS 47; BP_DIAS 81
[2017-12-04 06:57] LABS: BASOPHILS % (AUTO) 0 % (0-1); EOSINOPHILS % (AUTO) 0 % (0-6); HEMATOCRIT 30.1 % (35.0-45.0); HEMOGLOBIN 10.5 g/dl (12.0-16.0); LYMPHOCYTES # (AUTO) 2.8 X10'3 (1.1-4.8); MEAN CORPUSCULAR HGB CONC 34.8 % (33.0-36.5); MEAN CORPUSCULAR VOLUME 94.6 FL (78-98); MEAN PLATELET VOLUME 8.2 FL (7.4-10.4); MONOCYTES # (AUTO) 0.4 X10'3 (0-0.9); MONOCYTES % (AUTO) 2.9 % (2-12); NEUTROPHILS # (AUTO) 9.4 X10'3 (1.8-7.7); NEUTROPHILS % (AUTO) 75.1 % (42-75); PLATELET COUNT 209 X10'3 (140-440); RED BLOOD COUNT 3.19 X10'6 (4.20-5.60); RED CELL DISTRIBUTION WIDTH 15.9 % (11.5-14.5); WHITE BLOOD COUNT 12.6 X10'3 (4.5-11.0)
[2017-12-04 06:59] LABS: ALBUMIN 2.4 G/DL (3.4-5.0); ANION GAP 7 (8-16); BLOOD UREA NITROGEN 27 MG/DL (7-18); BUN/CREATININE RATIO 67.5 (6.6-38.0); CALCIUM 8.2 MG/DL (8.5-10.1); CHLORIDE 100 MMOL/L (99-107); GLUCOSE 161 MG/DL (70-104); MAGNESIUM 1.9 MG/DL (1.5-2.4); PHOSPHORUS 4.1 MG/DL (2.3-4.5); POTASSIUM 4.1 MMOL/L (3.5-5.1); SODIUM 137 MMOL/L (135-145); TOTAL CARBON DIOXIDE 29.8 MMOL/L (24-32); eGFR > 90 ML/MIN
[2017-12-04] MEDS: CefTRIAXone 2gm/D5W 50ml 50 ML IV SCH (07:44)
[2017-12-04] MEDS: prednisoLONE 15mg/5ml oral solution 5ml cup PO SCH ×2 (07:55→14:14)
[2017-12-04] MEDS: ferrous sulfate 325mg tablet PO SCH (07:56)
[2017-12-04] MEDS: lactobacillus rhamnosus 10,000 MMU CELLS/CAPSULE PO SCH (07:56)
[2017-12-04] MEDS: enoxaparin 40mg/0.4ml syringe SQ SCH (07:56)
[2017-12-04] MEDS: sulfaSALAZINE 500 MG tablet PO SCH ×2 (07:57→12:15)
[2017-12-04 08:00] VITALS: BP 149/82
[2017-12-04] MEDS ORDERED: lisinopril 2.5mg tablet PO SCH (08:00)
[2017-12-04] MEDS: K and/or MAG REPLACEMENT MC SCH (08:00)
[2017-12-04] MEDS: DOXYCYCLINE 100 MG in NORMAL SALINE 100ml IV.SOLN IV SCH (08:04)
[2017-12-04] MEDS: insulin Lispro (HumaLOG) vial - multi-dose SQ SCH ×2 (08:08→13:20)
[2017-12-04] MEDS: ipratropium/albuterol 3ml nebule NEB SCH (09:28)
[2017-12-04] MEDS: budesonide 0.5mg/2ml UD nebule IH SCH (09:29)
[2017-12-04 11:51] VITALS: BP 153/81
== END 2017-12-04 14:55 | DRG 871 ==
LOC: ER 14:30 → ED HOLD 18:56 → SUR 3N 20:04
PROVIDERS: ADMIT Hospitalist; ATTEND Family Medicine
DX: A41.9 Sepsis, unspecified organism (principal); J96.20 Acute and chronic respiratory failure, unspecified whether with hypoxia or hypercapnia; J18.1 Lobar pneumonia, unspecified organism; J44.0 Chronic obstructive pulmonary disease with (acute) lower respiratory infection; J44.1 Chronic obstructive pulmonary disease with (acute) exacerbation; K51.90 Ulcerative colitis, unspecified, without complications; E87.6 Hypokalemia; E11.9 Type 2 diabetes mellitus without complications; I10 Essential (primary) hypertension; Z99.81 Dependence on supplemental oxygen; Z79.899 Other long term (current) drug therapy; Z23 Encounter for immunization
CPT/HCPCS: 36415; 36600; 71045; 80048; 80053; 81001; 82803; 82948; 83036; 83605; 83735; 83880; 84100; 85018; 85025; 87040; 87070; 87324; 87449; 93005; 94640; 94760; 96365; 96366; 96368; 96375; 97110; 97116; 97162; 97530; 99285; J0360; J0456; J0696; J1650; J1815; J1940; J2930; J3475; J3490; J7030; J7510; J7626

== ENCOUNTER 2017-12-28 09:46 | Emergency (ER) | payer MEDICARE, OTHER ==
[~2017-12-28] VITALS: Ht 160 cm; Wt 44.5 kg
[~2017-12-28 09:46] MED LIST changes: -CLON0.1T20 PO; -OMEP40CA37; -PRE5T PO
[2017-12-28] MEDS: HYDROcodone/acetaminophen 10/325mg tab PO ONE ×2 (10:00→10:33)
[2017-12-28] MEDS ORDERED: ondansetron/PF 4mg/2ml inj IV ONE (10:00)
[2017-12-28 10:26] LABS: BASOPHILS # (AUTO) 0.1 X10'3 (0-0.2); BASOPHILS % (AUTO) 0.9 % (0-1); EOSINOPHILS # (AUTO) 0.1 X10'3 (0-0.9); EOSINOPHILS % (AUTO) 0.9 % (0-6); HEMATOCRIT 35.3 % (35.0-45.0); HEMOGLOBIN 11.5 g/dl (12.0-16.0); LYMPHOCYTES # (AUTO) 2.6 X10'3 (1.1-4.8); LYMPHOCYTES % (AUTO) 22.4 % (21-51); MEAN CORPUSCULAR HEMOGLOBIN 32.1 PG (27.0-31.0); MEAN CORPUSCULAR HGB CONC 32.5 % (33.0-36.5); MEAN CORPUSCULAR VOLUME 98.7 FL (78-98); MEAN PLATELET VOLUME 7.9 FL (7.4-10.4); MONOCYTES # (AUTO) 0.6 X10'3 (0-0.9); MONOCYTES % (AUTO) 5.2 % (2-12); NEUTROPHILS # (AUTO) 8.3 X10'3 (1.8-7.7); NEUTROPHILS % (AUTO) 70.6 % (42-75); PLATELET COUNT 266 X10'3 (140-440); RED BLOOD COUNT 3.57 X10'6 (4.20-5.60); RED CELL DISTRIBUTION WIDTH 16.3 % (11.5-14.5); WHITE BLOOD COUNT 11.7 X10'3 (4.5-11.0)
[2017-12-28] MEDS: morphine 4 MG/ML inj SYRINge IV PRN ×2 (10:33→12:04)
[2017-12-28 10:42] LABS: ALANINE AMINOTRANSFERASE 22 U/L (12-78); ALBUMIN 2.9 G/DL (3.4-5.0); ALKALINE PHOSPHATASE 102 IU/L (46-116); ANION GAP 5 (8-16); ASPARTATE AMINO TRANSFERASE 8 U/L (10-37); BILIRUBIN,TOTAL 0.4 MG/DL (0.1-1.0); BLOOD UREA NITROGEN 19 MG/DL (7-18); BUN/CREATININE RATIO 38.8 (6.6-38.0); CALCIUM 8.1 MG/DL (8.5-10.1); CHLORIDE 104 MMOL/L (99-107); CREATININE 0.49 MG/DL (0.40-0.90); GLUCOSE 80 MG/DL (70-104); POTASSIUM 3.3 MMOL/L (3.5-5.1); SODIUM 141 MMOL/L (135-145); TOTAL CARBON DIOXIDE 31.9 MMOL/L (24-32); TOTAL PROTEIN 5.9 G/DL (6.4-8.2); eGFR > 90 ML/MIN
[2017-12-28] MEDS ORDERED: oxyCODONE/APAP 10/325mg tablet PO ONE (11:45)
[2017-12-28] MEDS ORDERED: OXYC-150 PO (14:25)
[2017-12-28 14:51] VITALS: BP 139/84
== END 2017-12-28 15:11 | disposition home or self-care (01) ==
LOC: ER 09:46
DX: S22.32XA Fracture of one rib, left side, initial encounter for closed fracture (principal); G89.29 Other chronic pain; M54.9 Dorsalgia, unspecified; I10 Essential (primary) hypertension; J44.9 Chronic obstructive pulmonary disease, unspecified; Z79.899 Other long term (current) drug therapy; X58.XXXA Exposure to other specified factors, initial encounter; Y93.89 Activity, other specified; Y92.89 Other specified places as the place of occurrence of the external cause; Y99.8 Other external cause status
CPT/HCPCS: 36415; 71045; 80053; 85025; 96374; 96375; 99285; J2270; J2405

== ENCOUNTER 2018-01-31 11:04 | Inpatient (IN) | payer MEDICARE, MEDICAID ==
[~2018-01-31] VITALS: Ht 149.9 cm; Wt 47.7 kg
[~2018-01-31 11:04] MED LIST changes: +OXYC-150 PO
[2018-01-31] MEDS ORDERED: ondansetron/PF 4mg/2ml inj IV ONE (11:20)
[2018-01-31 11:39] LABS: BASOPHILS # (AUTO) 0.1 X10'3 (0-0.2); BASOPHILS % (AUTO) 0.4 % (0-1); EOSINOPHILS # (AUTO) 0.1 X10'3 (0-0.9); HEMATOCRIT 43.3 % (35.0-45.0); HEMOGLOBIN 14.1 g/dl (12.0-16.0); LYMPHOCYTES # (AUTO) 4.2 X10'3 (1.1-4.8); LYMPHOCYTES % (AUTO) 30.3 % (21-51); MEAN CORPUSCULAR HEMOGLOBIN 31.9 PG (27.0-31.0); MEAN CORPUSCULAR HGB CONC 32.5 % (33.0-36.5); MEAN CORPUSCULAR VOLUME 98.2 FL (78-98); MEAN PLATELET VOLUME 7.5 FL (7.4-10.4); MONOCYTES # (AUTO) 0.6 X10'3 (0-0.9); MONOCYTES % (AUTO) 4.1 % (2-12); NEUTROPHILS # (AUTO) 8.9 X10'3 (1.8-7.7); NEUTROPHILS % (AUTO) 64.2 % (42-75); PLATELET COUNT 251 X10'3 (140-440); RED BLOOD COUNT 4.41 X10'6 (4.20-5.60); RED CELL DISTRIBUTION WIDTH 17.3 % (11.5-14.5); WHITE BLOOD COUNT 13.8 X10'3 (4.5-11.0)
[2018-01-31] MEDS ORDERED: morphine 4 MG/ML inj SYRINge IV PRN (11:45)
[2018-01-31 12:02] LABS: ALANINE AMINOTRANSFERASE 47 U/L (12-78); ALBUMIN 3.2 G/DL (3.4-5.0); ALBUMIN/GLOBULIN RATIO 0.9 (1.1-1.5); ALKALINE PHOSPHATASE 127 IU/L (46-116); ANION GAP 5 (8-16); ASPARTATE AMINO TRANSFERASE 16 U/L (10-37); BILIRUBIN,TOTAL 0.5 MG/DL (0.1-1.0); BLOOD UREA NITROGEN 22 MG/DL (7-18); BUN/CREATININE RATIO 46.8 (6.6-38.0); CALCIUM 9.2 MG/DL (8.5-10.1); CHLORIDE 100 MMOL/L (99-107); CREATININE 0.47 MG/DL (0.40-0.90); GLUCOSE 96 MG/DL (70-104); POTASSIUM 3.1 MMOL/L (3.5-5.1); SODIUM 142 MMOL/L (135-145); TOTAL CARBON DIOXIDE 37.2 MMOL/L (24-32); TOTAL PROTEIN 6.6 G/DL (6.4-8.2); eGFR > 90 ML/MIN
[2018-01-31] MEDS ORDERED: oxyCODONE/APAP 10/325mg tablet PO ONE (12:25)
[2018-01-31] MEDS: morphine 4 MG/ML inj SYRINge IV PRN ×2 (12:25→15:02)
[2018-01-31] MEDS ORDERED: potassium Cl 20 mEq SR tablet PO ONE (12:25)
[2018-01-31 14:22] LABS: CLARITY,URINE CLEAR (Clear); COLOR,URINE YELLOW (Yellow); GLUCOSE, URINE NEGATIVE (Neg); KETONES,URINE NEGATIVE (Neg); LEUKOCYTE ESTERASE ,URINE NEGATIVE (Neg); NITRITES, URINE NEGATIVE (Neg); OCCULT BLOOD,URINE NEGATIVE (Neg); PROTEIN,URINE NEGATIVE (Neg); UROBILINOGEN,URINE 0.2 E.U/dL (0.2-1.0)
[2018-01-31 14:24] LABS: UA COLLECTION TYPE CLN CATCH MIDSTREAM
[2018-01-31] MEDS ORDERED: LISI2.5T2 PO (15:15)
[2018-01-31] MEDS ORDERED: FLUT1AER5 INH (15:15)
[2018-01-31] MEDS ORDERED: PRED15SO23 PO (15:15)
[2018-01-31] MEDS ORDERED: normal saline 1000ml 1,000 ML IV SCH (15:23)
[2018-01-31] MEDS ORDERED: magnesium Cl slow-release 64mg tablet PO PRN (15:25)
[2018-01-31] MEDS ORDERED: potassium Cl 20 mEq SR tablet PO PRN ×2 (15:25)
[2018-01-31] MEDS ORDERED: ondansetron/PF 4mg/2ml inj IV PRN (15:25)
[2018-01-31] MEDS ORDERED: potassium Cl 40MEQ/NS 500ml 500 ML IV PRN ×2 (15:25)
[2018-01-31] MEDS ORDERED: HYDROcodone/acetaminophen 10/325mg tab PO PRN (15:25)
[2018-01-31] MEDS ORDERED: magnesium 4gm in 100ml NS 100 ML IV PRN (15:25)
[2018-01-31] MEDS ORDERED: morphine 2 MG/ML inj. syringe IV PRN ×2 (15:25)
[2018-01-31] MEDS ORDERED: HYDROcodone/acetaminophen 5mg/325mg tablet PO PRN (15:25)
[2018-01-31 17:14] VITALS: BP 136/79
[2018-01-31] MEDS: docusate sod 100mg capsule PO SCH (19:55)
[2018-01-31 20:00] VITALS: BP 102/75
[2018-01-31 23:00] VITALS: BP 127/72
[2018-02-01 04:58] LABS: BASOPHILS % (AUTO) 0.3 % (0-1); EOSINOPHILS # (AUTO) 0.2 X10'3 (0-0.9); EOSINOPHILS % (AUTO) 1.5 % (0-6); HEMATOCRIT 40.2 % (35.0-45.0); HEMOGLOBIN 13.2 g/dl (12.0-16.0); LYMPHOCYTES # (AUTO) 2.5 X10'3 (1.1-4.8); LYMPHOCYTES % (AUTO) 15.6 % (21-51); MEAN CORPUSCULAR HEMOGLOBIN 32.1 PG (27.0-31.0); MEAN CORPUSCULAR HGB CONC 32.9 % (33.0-36.5); MEAN CORPUSCULAR VOLUME 97.7 FL (78-98); MEAN PLATELET VOLUME 7.7 FL (7.4-10.4); MONOCYTES # (AUTO) 0.7 X10'3 (0-0.9); MONOCYTES % (AUTO) 4.1 % (2-12); NEUTROPHILS # (AUTO) 12.7 X10'3 (1.8-7.7); NEUTROPHILS % (AUTO) 78.5 % (42-75); PLATELET COUNT 249 X10'3 (140-440); RED BLOOD COUNT 4.11 X10'6 (4.20-5.60); RED CELL DISTRIBUTION WIDTH 16.6 % (11.5-14.5); WHITE BLOOD COUNT 16.2 X10'3 (4.5-11.0)
[2018-02-01 05:14] LABS: ANION GAP 10 (8-16); BLOOD UREA NITROGEN 19 MG/DL (7-18); BUN/CREATININE RATIO 51.4 (6.6-38.0); CALCIUM 8.8 MG/DL (8.5-10.1); CHLORIDE 103 MMOL/L (99-107); CREATININE 0.37 MG/DL (0.40-0.90); GLUCOSE 57 MG/DL (70-104); POTASSIUM 4.6 MMOL/L (3.5-5.1); SODIUM 142 MMOL/L (135-145); TOTAL CARBON DIOXIDE 28.9 MMOL/L (24-32); eGFR > 90 ML/MIN
[2018-02-01 05:15] LABS: ALBUMIN 2.9 G/DL (3.4-5.0); MAGNESIUM 1.8 MG/DL (1.5-2.4)
[2018-02-01] MEDS: K and/or MAG REPLACEMENT MC SCH (08:03)
[2018-02-01] MEDS: docusate sod 100mg capsule PO SCH ×3 (08:11→21:57)
[2018-02-01] MEDS: levoFLOXACIN-Levaquin 750MG/D5 150 ML IV SCH (08:12)
[2018-02-01 08:29] VITALS: BP 159/84
[2018-02-01] MEDS: morphine 10mg/0.5ml (conc. morphine) oral syringe PO PRN ×5 (11:55→22:01)
[2018-02-01] MEDS: polyethylene glycol 3350 17gm powd pack PO SCH (11:55)
[2018-02-01 13:36] VITALS: BP 108/62
[2018-02-01 13:46] VITALS: BP 98/62
[2018-02-01] MEDS: sulfaSALAZINE 500 MG tablet PO SCH ×2 (15:27→21:00)
[2018-02-01] MEDS ORDERED: oxyCODONE/APAP 10/325mg tablet PO SCH (16:00)
[2018-02-01 16:15] VITALS: BP_SYST 118; BP_SYST 169; BP_DIAS 96; BP_DIAS 99
[2018-02-01 18:00] VITALS: BP 154/80
[2018-02-01] MEDS ORDERED: SALMETEROL INH SCH (20:00)
[2018-02-01] MEDS: prednisoLONE 15mg/5ml oral solution 5ml cup PO SCH (20:00)
[2018-02-01] MEDS ORDERED: FLUTICASONE INH SCH (20:00)
[2018-02-01] MEDS: lactobacillus rhamnosus 10,000 MMU CELLS/CAPSULE PO SCH (20:00)
[2018-02-01] MEDS: budesonide 0.5mg/2ml UD nebule IH SCH (21:00)
[2018-02-01] MEDS: albuterol 2.5 MG/3 ML nebule NEB SCH (21:32)
[2018-02-02] MEDS: morphine 10mg/0.5ml (conc. morphine) oral syringe PO PRN ×9 (00:15→22:00)
[2018-02-02] MEDS: albuterol 2.5 MG/3 ML nebule NEB SCH (06:39)
[2018-02-02] MEDS: budesonide 0.5mg/2ml UD nebule IH SCH (06:40)
[2018-02-02 07:00] VITALS: BP 117/66
[2018-02-02] MEDS: K and/or MAG REPLACEMENT MC SCH (07:17)
[2018-02-02] MEDS ORDERED: lisinopril 2.5mg tablet PO SCH (08:00)
[2018-02-02] MEDS: polyethylene glycol 3350 17gm powd pack PO SCH (08:00)
[2018-02-02] MEDS: prednisoLONE 15mg/5ml oral solution 5ml cup PO SCH (08:00)
[2018-02-02] MEDS ORDERED: ferrous sulfate 325mg tablet PO SCH (08:00)
[2018-02-02] MEDS: docusate sod 100mg capsule PO SCH (08:00)
[2018-02-02] MEDS: sulfaSALAZINE 500 MG tablet PO SCH ×2 (08:00→13:00)
[2018-02-02] MEDS: lactobacillus rhamnosus 10,000 MMU CELLS/CAPSULE PO SCH (08:00)
[2018-02-02] MEDS: levoFLOXACIN-Levaquin 750MG/D5 150 ML IV SCH (08:00)
[2018-02-02 20:00] VITALS: BP 120/53
[2018-02-03] MEDS: morphine 10mg/0.5ml (conc. morphine) oral syringe PO PRN ×9 (02:22→23:08)
[2018-02-03 07:00] VITALS: BP 116/60
[2018-02-03 19:00] VITALS: BP 109/57
[2018-02-04] MEDS: morphine 10mg/0.5ml (conc. morphine) oral syringe PO PRN ×7 (01:22→23:09)
[2018-02-04 08:05] VITALS: BP 96/63
[2018-02-04] MEDS ORDERED: LORazepam 0.5 MG tablet PO PRN (12:30)
[2018-02-04 19:00] VITALS: BP 172/79
[2018-02-05] MEDS: morphine 10mg/0.5ml (conc. morphine) oral syringe PO PRN ×3 (01:08→09:05)
[2018-02-05 08:00] VITALS: BP 133/78
[2018-02-05 20:19] VITALS: BP 111/62
[2018-02-06 07:45] VITALS: BP 94/49
[2018-02-06] MEDS: morphine 10mg/0.5ml (conc. morphine) oral syringe PO PRN ×2 (12:08→15:04)
[2018-02-06 20:00] VITALS: BP 98/47
== END 2018-02-07 06:00 | disposition expired | DRG 542 ==
LOC: ER 11:05 → ED HOLD 15:23 → SUR 3N 16:40
PROVIDERS: ADMIT Internal Medicine; ATTEND Internal Medicine
DX: M80.08XA Age-related osteoporosis with current pathological fracture, vertebra(e), initial encounter for fracture (principal); G92 Toxic encephalopathy; J96.11 Chronic respiratory failure with hypoxia; K51.90 Ulcerative colitis, unspecified, without complications; G89.29 Other chronic pain; M54.9 Dorsalgia, unspecified; E87.6 Hypokalemia; K59.00 Constipation, unspecified; J44.9 Chronic obstructive pulmonary disease, unspecified; R62.7 Adult failure to thrive; I10 Essential (primary) hypertension; Z51.5 Encounter for palliative care; Z99.81 Dependence on supplemental oxygen; Z79.52 Long term (current) use of systemic steroids; Z79.899 Other long term (current) drug therapy; Z87.891 Personal history of nicotine dependence; Z87.01 Personal history of pneumonia (recurrent); Z83.3 Family history of diabetes mellitus
CPT/HCPCS: 36415; 71045; 80048; 80053; 81003; 83735; 85025; 87070; 92616; 96374; 99285; G0378; J1956; J2270; J2405; J3480; J7030; J7510; J7626